=== PATIENT | male | born 2000 | race Caucasian/White ===

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

== ENCOUNTER 2019-01-21 10:09 | Emergency (ER) | payer OTHER ==
[2019-01-21 10:18] VITALS: BP 115/72; PULSE 96; RESP 18; TEMP 99.2
[2019-01-21] MEDS ORDERED: ACETAMINOPHEN TAB 325 MG TAB PO STA (10:19)
--- NOTE | 2019-01-21 10:47 | XR ---
EXAMINATION TYPE: XR chest 2V DATE OF EXAM: 01/21/2019 COMPARISON: Prior chest x-ray 06/15/2014 HISTORY: Pain, fever TECHNIQUE: Frontal and lateral views of the chest are obtained. FINDINGS: There is no focal air space opacity, pleural effusion, or pneumothorax seen. The cardiac silhouette size is within normal limits. The osseous structures are intact. IMPRESSION: No acute cardiopulmonary process.
--- NOTE | 2019-01-21 10:47 | ED ---
URI HPI - General Chief Complaint: Upper Respiratory Infection Stated Complaint: fever Time Seen by Provider: 01/21/19 10:12 Source: patient Mode of arrival: ambulatory Limitations: no limitations - History of Present Illness Initial Comments: 18yo male who denies past medical history presenting today for chief complaint of cough, congestion and sore throat. Patient states that yesterday 5 PM he began to develop congestion as well as cough. Patient states his throat is sore from coughing. Patient denies any vomiting, diarrhea, bowel pain, headache, nausea, vomiting or neck stiffness. Denies hemoptysis. She states that there has been other people in the home with similar symptoms. Remaining ROS (-), patient denies any recent shortness of breath, chest pain, back pain, numbness or tingling, dysuria or hematuria, constipation, or visual changes, or any other complaints. Upon arrival pt has low grade fever. Appears well VS within acceptable limits. Obvious upper respiratory symptoms. - Related Data Previous Rx's Medication Instructions Recorded Oseltamivir [Tamiflu] 75 mg PO Q12HR 5 Days #10 cap 01/21/19 Allergies Allergy/AdvReac Type Severity Reaction Status Date / Time cat dander Allergy Dyspnea Verified 01/21/19 10:18 Review of Systems ROS Statement: Those systems with pertinent positive or pertinent negative responses have been documented in the HPI. ROS Other: All systems not noted in ROS Statement are negative. Past Medical History Past Medical History: No Reported History History of Any Multi-Drug Resistant Organisms: None Reported Past Surgical History: No Surgical Hx Reported Past Psychological History: No Psychological Hx Reported Smoking Status: Never smoker Past Alcohol Use History: None Reported Past Drug Use History: None Reported General Exam - General Exam Comments Initial Comments: General: The patient is awake and alert, in no distress, and does not appear acutely ill. Eye: +3 mm pupils are equal, round and reactive to light, extra-ocular movements are intact. No nystagmus. There is normal conjunctiva bilaterally. No signs of icterus. Ears, nose, mouth and throat: There are moist mucous membranes and no oral lesions. Tympanic membranes mildly erythematous, no tonsillar enlargement exudates or lesions. Uvula midline. EAC WNL. Nasal rhinorrhea. Neck: The neck is supple, there is no tenderness or JVD. No anterior cervical lymphadenopathy Cardiovascular: There is a regular rate and rhythm. No murmur, rub or gallop is appreciated. Respiratory: Lungs are clear to auscultation, respirations are non-labored, breath sounds are equal. No wheezes, stridor, rales, or rhonchi. No areas concerning for consolidation. Gastrointestinal: Soft, non-distended, non-tender abdomen without masses or organomegaly noted. There is no rebound or guarding present. Musculoskeletal: Normal ROM, no tenderness. Strength 5/5. Sensation intact. Radial pulses equal bilaterally 2+. Neurological: A&O x 3. CN II-XII intact, There are no obvious motor or sensory deficits. Coordination appears grossly intact. Speech is normal. Skin: Skin is warm and dry and no rashes or lesions are noted. Psychiatric: Cooperative, appropriate mood & affect, normal judgment. Limitations: no limitations Course Vital Signs 01/21/19 10:14 Temperature 99.2 F Pulse Rate 96 Respiratory 18 Rate Blood Pressure 115/72 O2 Sat by Pulse 99 Oximetry Medical Decision Making - Medical Decision Making 18yo male presenting for upper respiratory symptoms. Influenza A positive. Chest x-ray negative. Physical examination revealed clear lung sounds. Patient appeared nontoxic. Oropharynx mildly erythematous. Otherwise normal exam. Patient had dry cough. At this time feel patient's symptoms correlate with laboratory study. Patient given tylenol, return parameters were discussed at length as well as symptomatically treatment. Patient discharged stable condition appearing well verbalized understanding of all return parameters. Case discussed with Dr. Powell prior to discharge. - Lab Data Lab Results 01/21/19 01/21/19 Range/Units 10:30 10:30 Influenza Type A RNA Detected H (Not Detectd) Influenza Type B (PCR) Not Detected (Not Detectd) Group A Strep Rapid Negative (Negative) Disposition Clinical Impression: Influenza A Disposition: HOME SELF-CARE Condition: Good Instructions (If sedation given, give patient instructions): Fever in Adults (ED), Influenza (ED) Additional Instructions: Please use medication as discussed. Please follow-up with family doctor in the next 2 days of symptoms have not improved. Please return to emergency room if the symptoms increase or worsen or for any other concerns. Prescriptions: Oseltamivir [Tamiflu] 75 mg PO Q12HR 5 Days #10 cap Is patient prescribed a controlled substance at d/c from ED?: No Referrals: None,Stated [Primary Care Provider] - 1-2 days [facility]2 days Time of Disposition: 11:01
== END 2019-01-21 11:19 | disposition home or self-care (01) ==
LOC: EC 10:09
DX: J10.1 Influenza due to other identified influenza virus with other respiratory manifestations (principal); Z91.09 Other allergy status, other than to drugs and biological substances
CPT/HCPCS: 71046; 87081; 87430; 87502; 99283

== ENCOUNTER 2019-01-23 18:09 | Emergency (ER) | payer OTHER ==
[2019-01-23 18:13] VITALS: BP 114/76
[2019-01-23] MEDS ORDERED: KETOROLAC 30 MG/ML 1 ML VIAL IM STA (18:28)
[2019-01-23] MEDS ORDERED: ACETAMINOPHEN TAB 325 MG TAB PO STA (18:29)
--- NOTE | 2019-01-23 18:31 | ED ---
Headache HPI - General Chief Complaint: Headache Stated Complaint: DX FLU, STILL HAS CARSON Time Seen by Provider: 01/23/19 18:16 Mode of arrival: ambulatory Limitations: no limitations - History of Present Illness Initial Comments: 18-year-old male with no past medical history diagnosed with influenza A on 01-21 presents today for chief complaint of headache. Patient states that he has had a headache on and off since diagnosed with flu. He states time all seems to help. Last dose this morning. Patient states the headache returned and he present to the emergency department for evaluation. Patient denies any neck stiffness or photophobia, muscle weakness, sensation deficits, speech changes, diplopia, visual loss. Patient states he took a dose of Tamiflu this morning which caused him to vomit. Denies any spontaneous emesis following that episode. Patient denies any diarrhea, abdominal pain, nausea. Review of systems negative, patient denies any recent shortness of breath, chest pain, back pain, abdominal pain, numbness or tingling, dysuria or hematuria, constipation or diarrhea, visual changes, or any other complaints. UPon arrival pt appears nontoxic. VS WNL. - Related Data Home Medications Medication Instructions Recorded Confirmed Acetaminophen Tab [Tylenol Tab] 500 mg PO Q6H PRN 01/23/19 01/23/19 Previous Rx's Medication Instructions Recorded Oseltamivir [Tamiflu] 75 mg PO Q12HR 5 Days #10 cap 01/21/19 Acetaminophen Tab [Tylenol Tab] 500 mg PO Q4H PRN 7 Days #28 tablet 01/23/19 Ibuprofen [Motrin] 600 mg PO Q6HR PRN 7 Days #28 tab 01/23/19 Allergies Allergy/AdvReac Type Severity Reaction Status Date / Time cat dander Allergy Dyspnea Verified 01/23/19 18:33 Review of Systems ROS Statement: Those systems with pertinent positive or pertinent negative responses have been documented in the HPI. ROS Other: All systems not noted in ROS Statement are negative. Past Medical History Past Medical History: No Reported History History of Any Multi-Drug Resistant Organisms: None Reported Past Surgical History: No Surgical Hx Reported Past Psychological History: No Psychological Hx Reported Smoking Status: Never smoker Past Alcohol Use History: None Reported Past Drug Use History: None Reported General Exam - General Exam Comments Initial Comments: General: The patient is awake and alert, in no distress, and does not appear acutely ill. Eye: +3 mm pupils are equal, round and reactive to light, extra-ocular movements are intact. No nystagmus. There is normal conjunctiva bilaterally. No signs of icterus. No photophobia Ears, nose, mouth and throat: There are moist mucous membranes and no oral lesions. Oropharynx mildly erythematous there is no tonsillar enlargement exudates or lesions. Uvula midline. Tympanic membranes are not erythematous or is no effusions bulging or retraction. No tenderness to palpation of the mastoid. No anterior cervical lymphadenopathy. Rhinorrhea, clear and bilateral nares. No tripoding, no drooling. Neck: The neck is supple, there is no tenderness or JVD. No nuchal rigidity ne gative Brudzinski and Kernig Cardiovascular: There is a regular rate and rhythm. No murmur, rub or gallop is appreciated. Respiratory: Lungs are clear to auscultation, respirations are non-labored, breath sounds are equal. No wheezes, stridor, rales, or rhonchi. No retractions or abdominal breathing. Gastrointestinal: Soft, non-distended, non-tender abdomen without masses or organomegaly noted. There is no rebound or guarding present. Bowel sounds are unremarkable. Musculoskeletal: Normal ROM, no tenderness. Strength 5/5. Sensation intact. Radial pulses equal bilaterally 2+. Neurological: A&O x 3. CN II-XII intact, There are no obvious motor or sensory deficits. Coordination appears grossly intact. Speech appears normal, no muffling. Skin: Skin is warm and dry and no rashes or lesions are noted. No extremity edema Psychiatric: Cooperative Limitations: no limitations Course Vital Signs 01/23/19 01/23/19 18:11 19:53 Temperature 98.3 F 99.9 F H Pulse Rate 80 90 Respiratory 18 14 Rate Blood Pressure 114/76 O2 Sat by Pulse 99 98 Oximetry - Reevaluation(s) Reevaluation #1: Patient reevaluated, patient states headache is subsiding almost completely. Patient appears well. Patient afebrile. 01/23/19 19:32 Medical Decision Making - Medical Decision Making Well-appearing 18-year-old male presenting for headache. Patient states he was diagnosed with blunt a 2 days prior. Patient states how to headache earlier this morning, patient states she has not taken Tylenol since that dose. Patient states headache return. Patient has no findings on physical examination concerning for meningismus. Appearing well nontoxic. With headache relief with tylenol. Pt discharged and the importance of nsaids/Tylenol were discussed in detail with the patient for symptomatic treatment. Pt discharged after discussing the case with attending Dr. Romero agreeable with discharge/plan of care. Disposition Clinical Impression: Influenza A, Headache Disposition: HOME SELF-CARE Condition: Good Instructions (If sedation given, give patient instructions): Influenza (ED) Additional Instructions: Please use medication as discussed. Please follow-up with family doctor in the next 2 days of symptoms have not improved. Please return to emergency room if the symptoms increase or worsen or for any other concerns. Prescriptions: Ibuprofen [Motrin] 600 mg PO Q6HR PRN 7 Days #28 tab PRN Reason: Fever Acetaminophen Tab [Tylenol Tab] 500 mg PO Q4H PRN 7 Days #28 tablet PRN Reason: Headache Is patient prescribed a controlled substance at d/c from ED?: No Referrals: Karlee Daley MD [Primary Care Provider] - 1-2 days Time of Disposition: 19:33
[2019-01-23 19:54] VITALS: PULSE 90; RESP 14; TEMP 99.9
== END 2019-01-23 19:54 | disposition home or self-care (01) ==
LOC: EC 18:09
DX: J10.1 Influenza due to other identified influenza virus with other respiratory manifestations (principal); Z91.09 Other allergy status, other than to drugs and biological substances; Z91.19 Patient's noncompliance with other medical treatment and regimen
CPT/HCPCS: 99283

== ENCOUNTER 2020-11-10 16:33 | Emergency (ER) | payer OTHER ==
[2020-11-10 16:37] VITALS: BP 132/75; PULSE 60; RESP 18; TEMP 98.1
--- NOTE | 2020-11-10 17:02 | ED ---
URI HPI - General Chief Complaint: Upper Respiratory Infection Stated Complaint: lung pain Time Seen by Provider: 11/10/20 16:44 Source: patient, RN notes reviewed Mode of arrival: ambulatory Limitations: no limitations - History of Present Illness Initial Comments: This a 20-year-old male presents emergency Department chief complaint of left- sided long, rib pain. Patient states started this morning around 9 AM when he was working. He denies any trauma. Patient states that he feels that he is sick with a slight cough. Does not have any shortness breath at rest. No GI symptoms no abdominal pain. Patient has no prior cardiac disease. Patient states that his and chemo over [place] was not feeling well and now his been sick. - Related Data Home Medications Medication Instructions Recorded Confirmed Acetaminophen Tab [Tylenol Tab] 500 mg PO Q6H PRN 01/23/19 01/23/19 Previous Rx's Medication Instructions Recorded Oseltamivir [Tamiflu] 75 mg PO Q12HR 5 Days #10 cap 01/21/19 Acetaminophen Tab [Tylenol Tab] 500 mg PO Q4H PRN 7 Days #28 tablet 01/23/19 Ibuprofen [Motrin] 600 mg PO Q6HR PRN 7 Days #28 tab 01/23/19 Allergies Allergy/AdvReac Type Severity Reaction Status Date / Time cat dander Allergy Dyspnea Verified 11/10/20 16:37 Review of Systems ROS Statement: Those systems with pertinent positive or pertinent negative responses have been documented in the HPI. ROS Other: All systems not noted in ROS Statement are negative. Past Medical History Past Medical History: No Reported History History of Any Multi-Drug Resistant Organisms: None Reported Past Surgical History: No Surgical Hx Reported Past Psychological History: No Psychological Hx Reported Smoking Status: Never smoker Past Alcohol Use History: None Reported Past Drug Use History: None Reported General Exam Limitations: no limitations General appearance: alert, in no apparent distress Head exam: Present: atraumatic, normocephalic, normal inspection Eye exam: Present: normal appearance, PERRL, EOMI. Absent: scleral icterus, conjunctival injection, periorbital swelling ENT exam: Present: normal exam, normal oropharynx, mucous membranes moist Neck exam: Present: normal inspection, full ROM. Absent: tenderness, meningismus, lymphadenopathy Respiratory exam: Present: normal lung sounds bilaterally, chest wall tenderness. Absent: respiratory distress, wheezes, rales, rhonchi, stridor Cardiovascular Exam: Present: regular rate, normal rhythm, normal heart sounds. Absent: systolic murmur, diastolic murmur, rubs, gallop, clicks GI/Abdominal exam: Present: soft, normal bowel sounds. Absent: distended, tenderness, guarding, rebound, rigid Course Vital Signs 11/10/20 16:34 Temperature 98.1 F Pulse Rate 60 Respiratory 18 Rate Blood Pressure 132/75 O2 Sat by Pulse 99 Oximetry Medical Decision Making - Medical Decision Making Chest x-rays unremarkable. Patient has reproducible pain, rib discomfort which is consistent with costochondritis. Patient vitals are stable patient discharged in stable condition return parameters were discussed. Disposition Clinical Impression: Chest wall pain, Costochondritis, acute Disposition: HOME SELF-CARE Condition: Stable Instructions (If sedation given, give patient instructions): Costochondritis (ED) Additional Instructions: Please return to the Emergency Department if symptoms worsen or any other concerns. Is patient prescribed a controlled substance at d/c from ED?: No Referrals: None,Stated [Primary Care Provider] - 1-2 days Time of Disposition: 17:32
--- NOTE | 2020-11-10 17:27 | XR ---
EXAMINATION TYPE: XR chest 2V DATE OF EXAM: 11/10/2020 COMPARISON: 01/21/2019 HISTORY: Cough TECHNIQUE: FINDINGS: Heart and mediastinum are normal. Lungs are clear. Diaphragm is normal. Bony thorax is inta ct. IMPRESSION: Normal chest. No change.
== END 2020-11-10 17:42 | disposition home or self-care (01) ==
LOC: EC 16:33
DX: M94.0 Chondrocostal junction syndrome [Tietze] (principal); R05 Cough; Z91.048 Other nonmedicinal substance allergy status
CPT/HCPCS: 71046; 99283

== ENCOUNTER 2020-11-12 17:52 | Emergency (ER) | payer OTHER ==
[2020-11-12 17:58] VITALS: RESP 18; TEMP 98.3
--- NOTE | 2020-11-12 19:18 | ED ---
Recheck HPI - General Chief Complaint: Chest Pain Stated Complaint: Revisit - Chest Pain Time Seen by Provider: 11/12/20 18:33 Source: patient Mode of arrival: ambulatory Limitations: no limitations - History of Present Illness Initial Comments: Patient is a 20-year-old male presenting to the emergency Department with complaints of left-sided rib pain 2 days. Patient was seen in the ER 2 days ago and evaluated for the exact same thing. Patient states the symptoms have been intermittent. Patient states he was stressed out today by a coworker and states the pain increased. Patient states it still hurts to touch the area and it hurts worse when he is lifting things. Patient was told to start Motrin however he did not go to any yet. He denies any fever, chills, no shortness of breath, denies history of heart disease. He states his symptoms feel the same as they were 2 days ago. He has no further complaints. - Related Data Previous Rx's Medication Instructions Recorded Oseltamivir [Tamiflu] 75 mg PO Q12HR 5 Days #10 cap 01/21/19 Acetaminophen Tab [Tylenol Tab] 500 mg PO Q4H PRN 7 Days #28 tablet 01/23/19 Acetaminophen Tab [Tylenol Tab] 500 mg PO Q6H PRN #30 tab 11/12/20 Ibuprofen [Motrin] 600 mg PO Q6HR PRN 7 Days #28 tab 11/12/20 Allergies Allergy/AdvReac Type Severity Reaction Status Date / Time cat dander Allergy Dyspnea Verified 11/10/20 16:37 Review of Systems ROS Statement: Those systems with pertinent positive or pertinent negative responses have been documented in the HPI. ROS Other: All systems not noted in ROS Statement are negative. Past Medical History Past Medical History: No Reported History History of Any Multi-Drug Resistant Organisms: None Reported Past Surgical History: No Surgical Hx Reported Past Psychological History: No Psychological Hx Reported Smoking Status: Never smoker Past Alcohol Use History: None Reported Past Drug Use History: None Reported General Exam - General Exam Comments Initial Comments: GENERAL: Patient is well-developed and well-nourished. Patient is nontoxic and in no acute distress. HEAD: Atraumatic, normocephalic. EYES: Pupils equal round and reactive to light, extraocular movements intact, sclera anicteric, conjunctiva are normal. Eyelids were unremarkable. ENT: TMs normal, nares patent, oropharynx clear without exudates. Moist mucous membranes. NECK: Normal range of motion, supple without lymphadenopathy or JVD. LUNGS: Unlabored respirations. Breath sounds clear to auscultation bilaterally and equal. No wheezes rales or rhonchi. HEART: Regular rate and rhythm without murmurs, rubs or gallops. ABDOMEN: Soft, nontender, normoactive bowel sounds. No guarding, no rebound. No masses appreciated. : Deferred MUSCULOSKELETAL: Normal extremities with adequate strength and normal range of motion, no pitting or edema. No clubbing or cyanosis. Patient does have pain with palpation on left side of the anterior and lateral ribs. Increases with deep inhalation. NEUROLOGICAL: Patient is alert and oriented x 3. Motor and sensory are also intact. Cranial nerves II through XII grossly intact. Symmetrical smile. Normal speech, normal gait. PSYCH: Normal mood, normal affect. SKIN: Warm, Dry, normal turgor, no rashes or lesions noted. Limitations: no limitations Course Vital Signs 11/12/20 11/12/20 17:53 19:36 Temperature 98.3 F Pulse Rate 68 62 Respiratory 18 18 Rate Blood Pressure 129/83 120/72 O2 Sat by Pulse 98 98 Oximetry Medical Decision Making - Medical Decision Making Patient is a 20-year-old male here for left-sided rib pain 2 days. Patient was evaluated in the ER 2 days ago for same thing, diagnosed with costochondritis. He states he was not able to go pick remover the Motrin yet. He states he gets stressed out today and it increased his pain. EKG shows no acute process. Patient had normal chest x-ray yesterday. Patient states his pain feels similar . He denies history of heart disease. I discussed with patient that he needs to continue with Motrin as discussed previously. He needs to continue to limit his heavy lifting. He is stable for discharge. Case discussed with Dr. Kent. - EKG Data EKG Comments: Normal sinus rhythm, normal ECG, no signs of acute ischemia. Ventricular rate 64, MN 150, QT 386. Disposition Clinical Impression: Costochondritis, acute Disposition: HOME SELF-CARE Condition: Stable Instructions (If sedation given, give patient instructions): Costochondritis (ED) Additional Instructions: Please return to the Emergency Department if symptoms worsen or any other concerns. Limit heavy lifting, recommend taking Motrin for discomfort. May also apply heat and/or ice to the area. Please follow-up with your regular physician if symptoms persist. Prescriptions: Ibuprofen [Motrin] 600 mg PO Q6HR PRN 7 Days #28 tab PRN Reason: Fever Acetaminophen Tab [Tylenol Tab] 500 mg PO Q6H PRN #30 tab PRN Reason: Pain Is patient prescribed a controlled substance at d/c from ED?: No Referrals: None,Stated [Primary Care Provider] - 1-2 days
[2020-11-12 19:40] VITALS: BP 120/72; PULSE 62
== END 2020-11-12 19:40 | disposition home or self-care (01) ==
LOC: EC 17:52
DX: M94.0 Chondrocostal junction syndrome [Tietze] (principal); Z91.048 Other nonmedicinal substance allergy status
CPT/HCPCS: 93005; 99284

== ENCOUNTER 2021-01-05 10:16 | Emergency (ER) | payer OTHER ==
[2021-01-05 10:32] VITALS: TEMP 98.2
[2021-01-05] MEDS ORDERED: IBUPROFEN 600 MG TAB PO STA (10:47)
--- NOTE | 2021-01-05 10:52 | ED ---
Chest Pain HPI - General Chief Complaint: Chest Pain Stated Complaint: Chest pain Time Seen by Provider: 01/05/21 10:35 Source: patient, RN notes reviewed Mode of arrival: wheelchair Limitations: no limitations - History of Present Illness Initial Comments: This is a 20-year-old male presents emergency Department chief complaint of left-sided rib pain. 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 He states he notices started a few spray in the face and he states he moved quickly. Patient has pain with movement he does not have any resting shortness of breath no prior cardiac or lung disease other than mild asthma. Denies being a smoker. He states that he got away from the exposure, sat down and the pain did improve. Patient states he had an episode of this back in October for similar situation. - Related Data Previous Rx's Medication Instructions Recorded Acetaminophen Tab [Tylenol Tab] 500 mg PO Q6H #30 tablet 01/05/21 Ibuprofen [Motrin] 600 mg PO Q8HR PRN #20 tab 01/05/21 Allergies Allergy/AdvReac Type Severity Reaction Status Date / Time cat dander Allergy Dyspnea Verified 01/05/21 10:53 Review of Systems ROS Statement: Those systems with pertinent positive or pertinent negative responses have been documented in the HPI. ROS Other: All systems not noted in ROS Statement are negative. EKG Findings - EKG Comments: EKG Findings:: EKG for at 10:36 normal sinus rhythm rate of 63 MA 180 QRS 94 QT/QTC 358/366 Past Medical History Past Medical History: No Reported History History of Any Multi-Drug Resistant Organisms: None Reported Past Surgical History: No Surgical Hx Reported Past Psychological History: Anxiety Smoking Status: Never smoker Past Alcohol Use History: None Reported Past Drug Use History: None Reported General Exam Limitations: no limitations General appearance: alert, in no apparent distress Head exam: Present: atraumatic, normocephalic, normal inspection Eye exam: Present: normal appearance, PERRL, EOMI. Absent: scleral icterus, conjunctival injection, periorbital swelling ENT exam: Present: normal exam, mucous membranes moist Neck exam: Present: normal inspection, full ROM. Absent: tenderness, meningismus, lymphadenopathy Respiratory exam: Present: normal lung sounds bilaterally, chest wall tenderness (Moderate tenderness with palpation to the anterior lateral ribs on the left, pain with range of motion of left arm and pain with deep inspiration to the ribs.). Absent: respiratory distress, wheezes, rales, rhonchi, stridor Cardiovascular Exam: Present: regular rate, normal rhythm, normal heart sounds. Absent: systolic murmur, diastolic murmur, rubs, gallop, clicks GI/Abdominal exam: Present: soft, normal bowel sounds. Absent: distended, tenderness, guarding, rebound, rigid Back exam: Absent: CVA tenderness (R), CVA tenderness (L) Neurological exam: Present: alert, oriented X3, CN II-XII intact, reflexes normal. Absent: motor sensory deficit Course Vital Signs 01/05/21 10:28 Temperature 98.2 F Pulse Rate 67 Respiratory 16 Rate Blood Pressure 103/70 O2 Sat by Pulse 98 Oximetry Chest Pain MDM - MDM X-rays reviewed no acute mL any no pneumothorax or fracture. Patient has very reproducible pain on the chest wall. Patient no prior cardiac risk factors EKG is unremarkable. Patient has no symptoms at rest. Patient be discharged in stable condition with a chest wall pain muscular strain. Disposition Clinical Impression: Chest wall injury, Chest wall muscle strain Disposition: HOME SELF-CARE Condition: Stable Instructions (If sedation given, give patient instructions): Chest Wall Pain (ED) Additional Instructions: Please return to the Emergency Department if symptoms worsen or any other concerns. Prescriptions: Ibuprofen [Motrin] 600 mg PO Q8HR PRN #20 tab PRN Reason: Pain Acetaminophen Tab [Tylenol Tab] 500 mg PO Q6H #30 tablet Is patient prescribed a controlled substance at d/c from ED?: No Referrals: None,Stated [Primary Care Provider] - 1-2 days Time of Disposition: 11:58
--- NOTE | 2021-01-05 11:11 | XR ---
EXAMINATION TYPE: PA chest with left rib series, 5 views DATE OF EXAM: 01/05/2021 Comparison: 11/10/2020 Clinical History: 20-year-old male left-sided rib pain Findings: The cardiomediastinal silhouette, aorta, and pulmonary vasculature are within normal limits. Lungs and pleural spaces are clear. No displaced left rib fracture seen. Impression: No acute cardiopulmonary process. No displaced left rib fracture seen.
[2021-01-05 13:00] VITALS: BP 123/74; PULSE 78; RESP 18
== END 2021-01-05 12:15 | disposition home or self-care (01) ==
LOC: EC 10:16
DX: S29.011A Strain of muscle and tendon of front wall of thorax, initial encounter (principal); Z91.048 Other nonmedicinal substance allergy status; X50.3XXA Overexertion from repetitive movements, initial encounter; Y93.89 Activity, other specified; Y92.69 Other specified industrial and construction area as the place of occurrence of the external cause
CPT/HCPCS: 93005; 99283

== ENCOUNTER 2021-01-07 09:44 | Emergency (ER) | payer OTHER ==
[2021-01-07 09:53] VITALS: BP 107/72; PULSE 71; RESP 18; TEMP 98.2
[2021-01-07] MEDS ORDERED: LIDOCAINE 5% PATCH TOPICAL STA (10:09)
[2021-01-07] MEDS ORDERED: IBUPROFEN 800 MG TAB PO STA (10:09)
--- NOTE | 2021-01-07 10:12 | ED ---
General Adult HPI - General Chief complaint: Shortness of Breath Stated complaint: TIARRA Time Seen by Provider: 01/07/21 09:59 Source: patient Mode of arrival: ambulatory - History of Present Illness Initial comments: Dictation was produced using [employer] dictation software. please excuse any grammatical, word or spelling errors. This patient was cared for during a federal and state declared state of emergency secondary to Covid 19 Chief Complaint: 20-year-old male presents with chest pain History of Present Illness: 20-year-old male presents with chest pain. Patient was seen here 2 days ago for the same complaint. 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 Patient states he was seen here 2 days ago for chest pain. He is here today for chest pain. Patient denies any shortness of breath. He has no medical problems. Patient states he began experiencing pain at work while using the sprayer. Patient states he has pain over his left chest. It is not exacerbated with movement. It's tender when he pressed the left anterior chest. Denies any trauma to the chest. He was prescribed medications on his last visit however has not picked them up due to transportation issues. The ROS documented in this emergency department record has been reviewed and confirmed by me. Those systems with pertinent positive or negative responses have been documented in the HPI. All other systems are other negative and/or noncontributory. PHYSICAL EXAM: General Impression: Alert and oriented x3, not in acute distress HEENT: Normocephalic atraumatic, extra-ocular movements intact, pupils equal and reactive to light bilaterally, mucous membranes moist. Cardiovascular: Heart regular rate and rhythm Chest: Able to complete full sentences, no retractions, no tachypnea, lungs clear to auscultation bilaterally, point tenderness over the left ribs at approximately the anterior anterior axillary line of ribs #6 Abdomen: abdomen soft, non-tender, non-distended, no organomegaly Musculoskeletal: Pulses present and equal in all extremities, no peripheral edema Motor: no focal deficits noted Neurological: CN II-XII grossly intact, no focal motor or sensory deficits noted Skin: Intact with no visualized rashes Psych: Normal affect and mood ED course: 20-year-old male presents with chief complaint of chest pain. Clinical presentation consistent with rib pain vital signs upon arrival are within acceptable limits. Patient's well-appearing at bedside. Chest x-ray is nonacute. EKG is normal. Patient given Lidoderm patch and one dose of Motrin. Patient be discharged. 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 - Related Data Previous Rx's Medication Instructions Recorded Acetaminophen Tab [Tylenol Tab] 500 mg PO Q6H #30 tablet 01/05/21 Ibuprofen [Motrin] 600 mg PO Q8HR PRN #20 tab 01/05/21 Allergies Allergy/AdvReac Type Severity Reaction Status Date / Time cat dander Allergy Dyspnea Verified 01/07/21 09:53 Review of Systems ROS Statement: Those systems with pertinent positive or pertinent negative responses have been documented in the HPI. ROS Other: All systems not noted in ROS Statement are negative. Past Medical History Past Medical History: No Reported History History of Any Multi-Drug Resistant Organisms: None Reported Past Surgical History: No Surgical Hx Reported Past Psychological History: Anxiety Smoking Status: Never smoker Past Alcohol Use History: None Reported Past Drug Use History: None Reported Course Vital Signs 01/07/21 09:50 Temperature 98.2 F Pulse Rate 71 Respiratory 18 Rate Blood Pressure 107/72 O2 Sat by Pulse 96 Oximetry Disposition Clinical Impression: Rib pain Disposition: HOME SELF-CARE Condition: Good Instructions (If sedation given, give patient instructions): Chest Pain (ED) Is patient prescribed a controlled substance at d/c from ED?: No Referrals: Maria Fernanda Cyr MD [REFERRING] - 1-2 days Time of Disposition: 10:50
--- NOTE | 2021-01-07 10:39 | XR ---
EXAMINATION TYPE: XR chest 2V DATE OF EXAM: 01/07/2021 COMPARISON: 01/05/2021 TECHNIQUE: PA and lateral views submitted. HISTORY: Chest pain FINDINGS: The lungs are clear and there is no pneumothorax, pleural effusion, or focal pneumonia. IMPRESSION: 1. No acute process.
== END 2021-01-07 11:00 | disposition home or self-care (01) ==
LOC: EC 09:44
DX: R07.81 Pleurodynia (principal); Z91.048 Other nonmedicinal substance allergy status
CPT/HCPCS: 71046; 93005; 99285

== ENCOUNTER 2021-01-30 16:56 | Emergency (ER) | payer OTHER ==
[2021-01-30 17:10] VITALS: BP 109/64; PULSE 82; RESP 18; TEMP 98.1
--- NOTE | 2021-01-30 17:45 | ED ---
General Adult HPI - General Chief complaint: Recheck/Abnormal Lab/Rx Stated complaint: Covid test Time Seen by Provider: 01/30/21 17:13 Source: patient, RN notes reviewed Mode of arrival: ambulatory Limitations: no limitations - History of Present Illness Initial comments: 20-year-old male presents to the emergency room for a chief complaint of covid test. States that a friend came over to the house who was exposed yesterday. Friend is currently asymptomatic and has not had any testing. Patient was just exposed today with family members. Patient has not developed any symptoms at all. They called their PCP who recommended they get tested. Patient has no other complaints at this time including shortness of breath, chest pain, abdominal pain, nausea or vomiting, headache, or visual changes. - Related Data Previous Rx's Medication Instructions Recorded Acetaminophen Tab [Tylenol Tab] 500 mg PO Q6H #30 tablet 01/05/21 Ibuprofen [Motrin] 600 mg PO Q8HR PRN #20 tab 01/05/21 Allergies Allergy/AdvReac Type Severity Reaction Status Date / Time cat dander Allergy Dyspnea Verified 01/30/21 17:08 Review of Systems ROS Statement: Those systems with pertinent positive or pertinent negative responses have been documented in the HPI. ROS Other: All systems not noted in ROS Statement are negative. Past Medical History Past Medical History: No Reported History History of Any Multi-Drug Resistant Organisms: None Reported Past Surgical History: No Surgical Hx Reported Past Psychological History: Anxiety Smoking Status: Never smoker Past Alcohol Use History: None Reported Past Drug Use History: None Reported General Exam Limitations: no limitations General appearance: alert, in no apparent distress Head exam: Present: atraumatic, normocephalic, normal inspection Eye exam: Present: normal appearance, PERRL, EOMI. Absent: scleral icterus, conjunctival injection, periorbital swelling ENT exam: Present: normal exam, mucous membranes moist Neck exam: Present: normal inspection. Absent: tenderness, meningismus, lymphadenopathy Respiratory exam: Present: normal lung sounds bilaterally. Absent: respiratory distress, wheezes, rales, rhonchi, stridor Cardiovascular Exam: Present: regular rate, normal rhythm, normal heart sounds. Absent: systolic murmur, diastolic murmur, rubs, gallop, clicks Course Vital Signs 01/30/21 17:06 Temperature 98.1 F Pulse Rate 82 Respiratory 18 Rate Blood Pressure 109/64 O2 Sat by Pulse 97 Oximetry Medical Decision Making - Medical Decision Making Vitals are stable. Patient is well-appearing. Patient is asymptomatic. PCR was ordered. Patient will follow up with his doctor. He will return here for any worsening symptoms. Disposition Clinical Impression: COVID-19 virus test result unknown Disposition: HOME SELF-CARE Condition: Good Instructions (If sedation given, give patient instructions): Coronavirus Disease 2019 (COVID-19) Additional Instructions: Please quarantine until you get your results. At that point talk to your doctor about whether you need to do the full 10 day quarantine as you're not directly exposed. Return to the emergency room for any worsening symptoms. Is patient prescribed a controlled substance at d/c from ED?: No Referrals: Maria Fernanda Cyr MD [REFERRING] - 1-2 days Time of Disposition: 17:44
== END 2021-01-30 17:45 | disposition home or self-care (01) ==
LOC: EC 16:56
DX: Z20.822 Contact with and (suspected) exposure to COVID-19 (principal)
CPT/HCPCS: 99283; U0003; U0005

== ENCOUNTER 2021-02-12 09:17 | Emergency (ER) | payer OTHER ==
[2021-02-12 09:25] VITALS: BP 122/76; PULSE 68; RESP 18; TEMP 98
--- NOTE | 2021-02-12 10:02 | XR ---
EXAMINATION TYPE: XR lumbosacral spine min 4V DATE OF EXAM: 02/12/2021 CLINICAL HISTORY: pain COMPARISON: NONE TECHNIQUE: Frontal, lateral, and oblique images of the lumbar spine are obtained. FINDINGS: Curvature noted convex to the left. There are 5 lumbar type vertebral bodies identified. The lumbar spine shows satisfactory alignment without evidence of acute fracture or dislocation. Vert ebral body heights are within normal limits. Disc spaces are well preserved. The overlying soft tis richard appears unremarkable. IMPRESSION: No acute fracture or dislocation is seen in the lumbar spine.ICD 10 NO FRACTURE, INITIAL EVALUATION
--- NOTE | 2021-02-12 10:33 | ED ---
Back Pain HPI - General Chief Complaint: Back Pain/Injury Stated Complaint: Fall, Back Injury Time Seen by Provider: 02/12/21 10:15 Source: patient, RN notes reviewed Limitations: no limitations - History of Present Illness Initial Comments: 20-year-old male presents emergency Department chief complaint of back pain. Patient states that he tripped over a part states that he twisted his back. Patient complains of mid to low back pain. Patient denies any bowel bladder incontinence or retention or saddle anesthesias. No abdominal complaints. Patient states there is a burning sensation in his muscles. - Related Data Previous Rx's Medication Instructions Recorded Acetaminophen Tab [Tylenol Tab] 500 mg PO Q6H #30 tablet 01/05/21 Ibuprofen [Motrin] 600 mg PO Q8HR PRN #20 tab 01/05/21 Cyclobenzaprine [Flexeril] 10 mg PO TID PRN #15 tab 02/12/21 Ibuprofen [Motrin] 600 mg PO Q8HR PRN #20 tab 02/12/21 Allergies Allergy/AdvReac Type Severity Reaction Status Date / Time cat dander Allergy Dyspnea Verified 02/12/21 09:23 Review of Systems ROS Statement: Those systems with pertinent positive or pertinent negative responses have been documented in the HPI. ROS Other: All systems not noted in ROS Statement are negative. Past Medical History Past Medical History: No Reported History History of Any Multi-Drug Resistant Organisms: None Reported Past Surgical History: No Surgical Hx Reported Past Psychological History: Anxiety Smoking Status: Never smoker Past Alcohol Use History: None Reported Past Drug Use History: None Reported General Exam Limitations: no limitations General appearance: alert, in no apparent distress Head exam: Present: atraumatic, normocephalic, normal inspection ENT exam: Present: normal exam, normal oropharynx, mucous membranes moist Neck exam: Present: normal inspection. Absent: tenderness, meningismus, lymphadenopathy Respiratory exam: Present: normal lung sounds bilaterally. Absent: respiratory distress, wheezes, rales, rhonchi, stridor Cardiovascular Exam: Present: regular rate, normal rhythm, normal heart sounds. Absent: systolic murmur, diastolic murmur, rubs, gallop, clicks GI/Abdominal exam: Present: soft, normal bowel sounds. Absent: distended, tenderness, guarding, rebound, rigid Extremities exam: Present: other (Or extremity strength equal bilaterally neurovascular intact) Back exam: Present: full ROM, tenderness (Paraspinal), muscle spasm, paraspinal tenderness. Absent: vertebral tenderness Neurological exam: Present: reflexes normal. Absent: motor sensory deficit Course Vital Signs 02/12/21 09:23 Temperature 98 F Pulse Rate 68 Respiratory 18 Rate Blood Pressure 122/76 O2 Sat by Pulse 99 Oximetry Medical Decision Making - Medical Decision Making X-rays unremarkable. Patient has a back strain. Patient discharged on ibuprofen and Flexeril. Disposition Clinical Impression: Back strain Disposition: HOME SELF-CARE Condition: Stable Instructions (If sedation given, give patient instructions): Acute Low Back Pain (ED) Additional Instructions: Please return to the Emergency Department if symptoms worsen or any other concerns. Prescriptions: Cyclobenzaprine [Flexeril] 10 mg PO TID PRN #15 tab PRN Reason: Muscle Spasm Ibuprofen [Motrin] 600 mg PO Q8HR PRN #20 tab PRN Reason: Pain Is patient prescribed a controlled substance at d/c from ED?: No Referrals: None,Stated [Primary Care Provider] - 1-2 days Time of Disposition: 10:33
== END 2021-02-12 10:36 | disposition home or self-care (01) ==
LOC: EC 09:17
DX: S39.012A Strain of muscle, fascia and tendon of lower back, initial encounter (principal); F41.9 Anxiety disorder, unspecified; W18.09XA Striking against other object with subsequent fall, initial encounter
CPT/HCPCS: 72110; 99284

== ENCOUNTER 2021-03-25 15:42 | Emergency (ER) | payer OTHER ==
[2021-03-25 15:46] VITALS: BP 108/71; PULSE 61; RESP 20; TEMP 98
[2021-03-25] MEDS ORDERED: SODIUM CHLORIDE 0.9% 1,000 ML IV STA (15:56)
--- NOTE | 2021-03-25 16:01 | ED ---
Nausea/Vomiting/Diarrhea HPI - General Chief complaint: Nausea/Vomiting/Diarrhea Stated complaint: vomiting Time Seen by Provider: 03/25/21 15:48 Source: patient, RN notes reviewed Mode of arrival: ambulatory Limitations: no limitations - History of Present Illness Initial comments: Patient is a 20-year-old male that presents emergency department with a two-day history of nausea and vomiting. He notes that he can emergency room to get tested for flu. He denied any other symptoms such as fever fatigue chills. He notes that he has vomited small amounts several times over the last 2 days. He noted that he called his work and at home that he needs a work note to come back. He did note that he does not want any blood tests as he is afraid of nee dles. He was well-appearing, well-hydrated while sitting up in bed during exam and interview. She denied any chest pain shortness of breath headache diarrhea constipation fever fatigue chills lightheadedness dizziness. - Related Data Home Medications Medication Instructions Recorded Confirmed No Known Home Medications 03/25/21 03/25/21 Allergies Allergy/AdvReac Type Severity Reaction Status Date / Time cat dander Allergy Dyspnea Verified 03/25/21 16:35 Review of Systems ROS Statement: Those systems with pertinent positive or pertinent negative responses have been documented in the HPI. ROS Other: All systems not noted in ROS Statement are negative. Past Medical History Past Medical History: No Reported History History of Any Multi-Drug Resistant Organisms: None Reported Past Surgical History: No Surgical Hx Reported Past Psychological History: Anxiety Smoking Status: Never smoker Past Alcohol Use History: None Reported Past Drug Use History: None Reported General Exam Limitations: no limitations General appearance: alert, in no apparent distress Head exam: Present: atraumatic, normocephalic, normal inspection Eye exam: Present: normal appearance, PERRL, EOMI. Absent: scleral icterus, conjunctival injection, periorbital swelling Neck exam: Present: normal inspection Respiratory exam: Present: normal lung sounds bilaterally. Absent: respiratory distress, wheezes, rales, rhonchi, stridor Cardiovascular Exam: Present: regular rate, normal rhythm, normal heart sounds. Absent: systolic murmur, diastolic murmur, rubs, gallop, clicks GI/Abdominal exam: Present: soft, normal bowel sounds, other (Generalized discomfort, patient was flexing his absence making exam hard.). Absent: distended, tenderness, guarding, rebound, rigid Extremities exam: Present: normal inspection, full ROM, normal capillary refill. Absent: tenderness, pedal edema, joint swelling, calf tenderness Neurological exam: Present: alert, oriented X3, CN II-XII intact Psychiatric exam: Present: normal affect, normal mood Skin exam: Present: warm, dry, intact, normal color. Absent: rash Course Vital Signs 03/25/21 15:43 Temperature 98.0 F Pulse Rate 61 Respiratory 20 Rate Blood Pressure 108/71 O2 Sat by Pulse 96 Oximetry Medical Decision Making - Medical Decision Making 20-year-old male with a 2 day history of nausea vomiting. Labs, 1 L normal saline, influenza and Covid test ordered Patient refuses all blood testing and saline only wanted influenza test. Case discussed with Dr. Bennett, patient can discharge home. Influenza test negative - Lab Data Lab Results 03/25/21 Range/Units 15:57 Influenza Type A RNA Not Detected (Not Detectd) Influenza Type B (PCR) Not Detected (Not Detectd) Disposition Clinical Impression: Nausea & vomiting Disposition: HOME SELF-CARE Condition: Stable Additional Instructions: Please return to the Emergency Department if symptoms worsen or any other concerns. Follow-up with primary care Work note given. Is patient prescribed a controlled substance at d/c from ED?: No Referrals: None,Stated [Primary Care Provider] - 1-2 days Time of Disposition: 18:09
== END 2021-03-25 18:16 | disposition home or self-care (01) ==
LOC: EC 15:42
DX: R11.2 Nausea with vomiting, unspecified (principal); F41.9 Anxiety disorder, unspecified
CPT/HCPCS: 87502; 99284

== ENCOUNTER 2021-04-07 04:31 | Emergency (ER) | payer OTHER ==
[2021-04-07 04:38] VITALS: TEMP 97.7
[2021-04-07 04:59] VITALS: RESP 18
--- NOTE | 2021-04-07 05:37 | XR ---
EXAM: XR Chest, 2 Views CLINICAL HISTORY: ITS.REASON XR Reason: L chest pain TECHNIQUE: Frontal and lateral views of the chest. COMPARISON: No relevant prior studies available. FINDINGS: Lungs: Unremarkable. No consolidation. Pleural space: Unremarkable. No pneumothorax. Heart: Unremarkable. No cardiomegaly. Mediastinum: Unremarkable. Bones/joints: Unremarkable. IMPRESSION: No evidence of acute cardiopulmonary disease.
--- NOTE | 2021-04-07 06:14 | ED ---
General Adult HPI - General Chief complaint: Shortness of Breath Stated complaint: Pain in Lungs Time Seen by Provider: 04/07/21 04:41 Source: patient Mode of arrival: ambulatory Limitations: no limitations - Related Data Previous Rx's Medication Instructions Recorded Ibuprofen [Motrin] 600 mg PO Q8HR PRN #20 tab 04/07/21 Allergies Allergy/AdvReac Type Severity Reaction Status Date / Time cat dander Allergy Dyspnea Verified 04/07/21 04:37 Review of Systems ROS Statement: Those systems with pertinent positive or pertinent negative responses have been documented in the HPI. ROS Other: All systems not noted in ROS Statement are negative. Past Medical History Past Medical History: No Reported History History of Any Multi-Drug Resistant Organisms: None Reported Past Surgical History: No Surgical Hx Reported Past Psychological History: Anxiety Smoking Status: Never smoker Past Alcohol Use History: None Reported Past Drug Use History: None Reported General Exam Limitations: no limitations Course Vital Signs 04/07/21 04/07/21 04:32 04:58 Temperature 97.7 F Pulse Rate 60 Respiratory 20 18 Rate Blood Pressure 117/74 O2 Sat by Pulse 96 Oximetry Disposition Clinical Impression: Pleuritis Disposition: HOME SELF-CARE Condition: Good Instructions (If sedation given, give patient instructions): Pleurisy (ED) Prescriptions: Ibuprofen [Motrin] 600 mg PO Q8HR PRN #20 tab PRN Reason: Pain Is patient prescribed a controlled substance at d/c from ED?: No Referrals: None,Stated [Primary Care Provider] - 1-2 days
[2021-04-07 06:24] VITALS: BP 107/79; PULSE 59
== END 2021-04-07 06:23 | disposition home or self-care (01) ==
LOC: EC 04:31
DX: R09.1 Pleurisy (principal); R06.02 Shortness of breath; F41.9 Anxiety disorder, unspecified
CPT/HCPCS: 71046; 99285

== ENCOUNTER 2021-04-13 15:11 | Emergency (ER) | payer OTHER ==
[2021-04-13 15:16] VITALS: BP 106/70; PULSE 89; RESP 20; TEMP 98.2
--- NOTE | 2021-04-13 15:32 | ED ---
General Adult HPI - General Chief complaint: Recheck/Abnormal Lab/Rx Stated complaint: Needs Dr note Time Seen by Provider: 04/13/21 15:19 Source: patient, RN notes reviewed Mode of arrival: ambulatory Limitations: no limitations - History of Present Illness Initial comments: 20-year-old male presents to the emergency room for a work note. 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 States he had an x-ray which was fine. Patient states he tried to return to work but they're requiring a note saying he can return. Patient states his symptoms of action much improved and they are almost gone. Patient does not want any further evaluation today, just wants a return to work note. He does not have a primary care to follow up with for this.Patient has no other complaints at this time including shortness of breath, abdominal pain, nausea or vomiting, headache, or visual changes. - Related Data Previous Rx's Medication Instructions Recorded Ibuprofen [Motrin] 600 mg PO Q8HR PRN #20 tab 04/07/21 Allergies Allergy/AdvReac Type Severity Reaction Status Date / Time cat dander Allergy Dyspnea Verified 04/13/21 15:16 Review of Systems ROS Statement: Those systems with pertinent positive or pertinent negative responses have been documented in the HPI. ROS Other: All systems not noted in ROS Statement are negative. Past Medical History Past Medical History: No Reported History Additional Past Medical History / Comment(s): Pleurisy History of Any Multi-Drug Resistant Organisms: None Reported Past Surgical History: No Surgical Hx Reported Past Psychological History: Anxiety Smoking Status: Never smoker Past Alcohol Use History: None Reported Past Drug Use History: None Reported General Exam Limitations: no limitations General appearance: alert, in no apparent distress Head exam: Present: atraumatic, normocephalic, normal inspection Eye exam: Present: normal appearance, PERRL, EOMI. Absent: scleral icterus, conjunctival injection, periorbital swelling ENT exam: Present: normal exam, mucous membranes moist Neck exam: Present: normal inspection, full ROM. Absent: tenderness, meningismus, lymphadenopathy Respiratory exam: Present: normal lung sounds bilaterally. Absent: respiratory distress, wheezes, rales, rhonchi, stridor Cardiovascular Exam: Present: regular rate, normal rhythm, normal heart sounds. Absent: systolic murmur, diastolic murmur, rubs, gallop, clicks GI/Abdominal exam: Present: soft, normal bowel sounds. Absent: distended, tenderness, guarding, rebound, rigid Neurological exam: Present: alert Course Vital Signs 04/13/21 15:13 Temperature 98.2 F Pulse Rate 89 Respiratory 20 Rate Blood Pressure 106/70 O2 Sat by Pulse 96 Oximetry Medical Decision Making - Medical Decision Making Vitals are stable. Patient is well-appearing. Patient stating his symptoms are significantly improved. He reports he tried to work however they are requiring a return to work note. 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 Patient refuses further workup, just wants a note. 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 He reports his mother is trying to get him into her primary care provider. Disposition Clinical Impression: Return to work evaluation Disposition: HOME SELF-CARE Condition: Good Instructions (If sedation given, give patient instructions): Return to Work Instructions (ED) Additional Instructions: If you have worsening symptoms return to the emergency room. Otherwise follow- up with primary care for further work restrictions and return to work parameters. Is patient prescribed a controlled substance at d/c from ED?: No Referrals: Maria Fernanda Cyr MD [REFERRING] - 1-2 days Time of Disposition: 15:29
== END 2021-04-13 15:42 | disposition home or self-care (01) ==
LOC: EC 15:11
DX: Z76.89 Persons encountering health services in other specified circumstances (principal)
CPT/HCPCS: 99281

== ENCOUNTER 2021-04-15 13:14 | Emergency (ER) | payer OTHER ==
[2021-04-15 13:39] VITALS: BP 108/70; PULSE 66; RESP 16; TEMP 97.9
--- NOTE | 2021-04-15 13:58 | XR ---
EXAMINATION TYPE: XR shoulder complete LT DATE OF EXAM: 04/15/2021 CLINICAL HISTORY: Pain after pushing injury. TECHNIQUE: Three views of the left shoulder are obtained. COMPARISON: None. FINDINGS: There is no acute fracture/dislocation evident in the left shoulder. The acromioclavicula r and glenohumeral joint spaces appear within normal limits. The visualized ribs are intact and unre markable. IMPRESSION: There is no acute fracture or dislocation in the left shoulder.
--- NOTE | 2021-04-15 14:11 | ED ---
Upper Extremity HPI - General Chief Complaint: Extremity Injury, Upper Stated Complaint: Lt Shoulder Pain/Revisit Time Seen by Provider: 04/15/21 14:00 Source: patient, RN notes reviewed Mode of arrival: ambulatory Limitations: physical limitation - History of Present Illness Initial Comments: Patient is a 20-year-old male that presents to the emergency room complaining of left shoulder pain. He notes that he was pushing heavy bins at work when his arm became sore. He notes that he can emergency room because he think he might a dislocated his shoulder. He notes that he does have full range of motion and full strength in his shoulders just sore. He denied any point tenderness or decreased sensation down his upper left extremity. He noted his pain was a 7 out of 10 but is yet to try any Tylenol Motrin or at home remedies before coming in. He noted that pushing heavy bins aggravates the pain. He denied any chest pain shortness breath headache nausea vomiting diarrhea constipation fever fatigue chills weakness numbness tingling decreased range of motion or strength in his upper left extremity. - Related Data Previous Rx's Medication Instructions Recorded Ibuprofen [Motrin] 600 mg PO Q8HR PRN #20 tab 04/07/21 Allergies Allergy/AdvReac Type Severity Reaction Status Date / Time cat dander Allergy Dyspnea Verified 04/15/21 13:39 Review of Systems ROS Statement: Those systems with pertinent positive or pertinent negative responses have been documented in the HPI. ROS Other: All systems not noted in ROS Statement are negative. Past Medical History Past Medical History: No Reported History Additional Past Medical History / Comment(s): Pleurisy History of Any Multi-Drug Resistant Organisms: None Reported Past Surgical History: No Surgical Hx Reported Past Psychological History: Anxiety Smoking Status: Never smoker Past Alcohol Use History: None Reported Past Drug Use History: None Reported General Exam Limitations: physical limitation General appearance: alert, in no apparent distress Head exam: Present: atraumatic, normocephalic, normal inspection Eye exam: Present: normal appearance, PERRL, EOMI. Absent: scleral icterus, conjunctival injection, periorbital swelling Neck exam: Present: normal inspection Respiratory exam: Present: normal lung sounds bilaterally. Absent: respiratory distress, wheezes, rales, rhonchi, stridor Cardiovascular Exam: Present: regular rate, normal rhythm, normal heart sounds. Absent: systolic murmur, diastolic murmur, rubs, gallop, clicks GI/Abdominal exam: Present: soft, normal bowel sounds. Absent: distended, tenderness, guarding, rebound, rigid Extremities exam: Present: normal inspection, full ROM, normal capillary refill. Absent: tenderness, pedal edema, joint swelling, calf tenderness Left Shoulder Exam: Present: normal inspection, full ROM. Absent: tenderness, swelling, abrasion, laceration, ecchymosis, deformity, crepitus, dislocation, erythema, tenderness over AC joint Vascular: Absent: vascular compromise Neurological exam: Present: alert, oriented X3, CN II-XII intact Psychiatric exam: Present: normal affect, normal mood Skin exam: Present: warm, dry, intact, normal color. Absent: rash Course Vital Signs 04/15/21 13:38 Temperature 97.9 F Pulse Rate 66 Respiratory 16 Rate Blood Pressure 108/70 O2 Sat by Pulse 97 Oximetry Medical Decision Making - Medical Decision Making 20-year-old male complaining of left shoulder pain after pushing her begins at work. X-ray of the left shoulder ordered. X-ray negative for any acute fractures or dislocations. Case discussed with Dr. Reynoso, patient discharge home with conservative management. - Radiology Data Radiology results: report reviewed, image reviewed X-ray of the left shoulder: No acute fracture dislocation Disposition Clinical Impression: Left shoulder strain Disposition: HOME SELF-CARE Condition: Stable Instructions (If sedation given, give patient instructions): Shoulder Sprain (ED), Shoulder Pain (ED) Additional Instructions: Please return to the Emergency Department if symptoms worsen or any other concerns. Use as tolerated, can take Tylenol Motrin as needed for pain control. Rest ice compress elevate as needed for symptom control. Follow-up primary care. Is patient prescribed a controlled substance at d/c from ED?: No Referrals: None,Stated [Primary Care Provider] - 1-2 days Time of Disposition: 14:09
== END 2021-04-15 14:17 | disposition home or self-care (01) ==
LOC: EC 13:14
DX: S46.912A Strain of unspecified muscle, fascia and tendon at shoulder and upper arm level, left arm, initial encounter (principal); F41.9 Anxiety disorder, unspecified; X50.0XXA Overexertion from strenuous movement or load, initial encounter; Y99.0 Civilian activity done for income or pay
CPT/HCPCS: 99283

== ENCOUNTER 2021-04-20 10:35 | Emergency (ER) | payer OTHER ==
[2021-04-20 11:06] VITALS: BP 96/66; PULSE 70; RESP 18; TEMP 97.6
--- NOTE | 2021-04-20 11:21 | XR ---
EXAMINATION TYPE: XR chest 2V DATE OF EXAM: 04/20/2021 COMPARISON: Chest x-ray April 07, 2021 HISTORY: Right-sided pain and shortness of breath. TECHNIQUE: Frontal and lateral views of the chest are obtained. FINDINGS: There is no suspicious new focal air space opacity, pleural effusion, or pneumothorax seen . The cardiac silhouette size remains within normal limits. The osseous structures are intact. IMPRESSION: No acute cardiopulmonary process. No significant change from prior.
--- NOTE | 2021-04-20 11:33 | ED ---
General Adult HPI - General Chief complaint: Chest Pain Stated complaint: Chest pain Time Seen by Provider: 04/20/21 11:08 Source: patient, RN notes reviewed Mode of arrival: ambulatory Limitations: no limitations - History of Present Illness Initial comments: Patient is a 20-year-old male that presents to emergency room complaining of left lower rib pain on deep inspiration. He notes that it started this morning. He notes the pain was approximate 7 out of 10 with no relief from anything. Patient frequents emergency department for different complaints. He was in no apparent distress or pain while sitting up in bed during the exam interview. He was sitting on his phone. Patient denied any palpitations shortness of breath headache nausea vomiting diarrhea constipation fever fatigue chills. - Related Data Previous Rx's Medication Instructions Recorded Ibuprofen [Motrin] 600 mg PO Q8HR PRN #20 tab 04/07/21 Allergies Allergy/AdvReac Type Severity Reaction Status Date / Time cat dander Allergy Dyspnea Verified 04/20/21 11:06 Review of Systems ROS Statement: Those systems with pertinent positive or pertinent negative responses have been documented in the HPI. ROS Other: All systems not noted in ROS Statement are negative. Past Medical History Past Medical History: No Reported History Additional Past Medical History / Comment(s): Pleurisy History of Any Multi-Drug Resistant Organisms: None Reported Past Surgical History: No Surgical Hx Reported Past Psychological History: Anxiety Smoking Status: Never smoker Past Alcohol Use History: None Reported Past Drug Use History: None Reported General Exam Limitations: no limitations General appearance: alert, in no apparent distress Head exam: Present: atraumatic, normocephalic, normal inspection Eye exam: Present: normal appearance, PERRL, EOMI. Absent: scleral icterus, conjunctival injection, periorbital swelling Neck exam: Present: normal inspection Respiratory exam: Present: normal lung sounds bilaterally. Absent: respiratory distress, wheezes, rales, rhonchi, stridor Cardiovascular Exam: Present: regular rate, normal rhythm, normal heart sounds. Absent: systolic murmur, diastolic murmur, rubs, gallop, clicks GI/Abdominal exam: Present: soft, normal bowel sounds. Absent: distended, tenderness, guarding, rebound, rigid Extremities exam: Present: normal inspection, full ROM, normal capillary refill. Absent: tenderness, pedal edema, joint swelling, calf tenderness Neurological exam: Present: alert, oriented X3, CN II-XII intact Psychiatric exam: Present: normal affect, normal mood Skin exam: Present: warm, dry, intact, normal color. Absent: rash Course Vital Signs 04/20/21 11:03 Temperature 97.6 F Pulse Rate 70 Respiratory 18 Rate Blood Pressure 96/66 O2 Sat by Pulse 95 Oximetry EKG Findings - EKG Comments: EKG Findings:: Ventricular rate 65 bpm, IN interval 172 ms, QRS duration 96 ms, QTC 405 ms, PRT axis -. Normal sinus rhythm, normal ECG. Medical Decision Making - Medical Decision Making 20-year-old male complaining of left-sided lower rib pain on deep inspiration. Chest x-ray, EKG, basic labs ordered. Patient informed nurse that he does not like his blood drawn and is refusing at this time. Chest x-ray negative. Case discussed with Dr. Washington, patient discharge home with follow-up primary care - EKG Data -: EKG Interpreted by [facility] EKG shows normal: sinus rhythm Rate: normal EKG Comments: Ventricular rate 65 bpm, IN interval 172 ms, QRS duration 96 ms, QTC 405 ms, PRT axis -. Normal sinus rhythm, normal ECG. - Radiology Data Radiology results: report reviewed, image reviewed Chest x-ray: No acute cardiopulmonary process. No significant change from prior. Disposition Clinical Impression: Costochondritis Disposition: HOME SELF-CARE Condition: Stable Instructions (If sedation given, give patient instructions): Costochondritis (ED) Additional Instructions: Please return to the Emergency Department if symptoms worsen or any other concerns. Please follow with primary care as he keep refusing workup at the ER we cannot keep supply work notes without valid testing. Work note given for today only. Follow-up with primary care in the next 1-2 days. Is patient prescribed a controlled substance at d/c from ED?: No Referrals: None,Stated [Primary Care Provider] - 1-2 days Time of Disposition: 11:32
== END 2021-04-20 11:38 | disposition home or self-care (01) ==
LOC: EC 10:35
DX: M94.0 Chondrocostal junction syndrome [Tietze] (principal)
CPT/HCPCS: 71046; 93005; 99285

== ENCOUNTER 2021-04-24 21:58 | Emergency (ER) | payer OTHER ==
[2021-04-24 22:02] VITALS: PULSE 78; RESP 16; TEMP 98.3
--- NOTE | 2021-04-24 22:46 | ED ---
Lower Extremity Injury HPI - General Chief Complaint: Extremity Injury, Lower Stated Complaint: R Knee Pain Time Seen by Provider: 04/24/21 22:27 Source: patient Mode of arrival: ambulatory Limitations: no limitations - History of Present Illness Initial Comments: This patient is a 20-year-old man who presents to have evaluation of his right knee which is causing pain. Patient states it started this afternoon/evening at work. He had been moving a heavy waste barrel around and then he twisted his right knee. He indicates pain along the medial and lateral margin of his patella. There was no impact to the knee. The patient states that the pain is mainly when he attempts to fully extend his leg. He is able to bear some weight on the leg. No previous injury or surgery. MD Complaint: knee injury -: hour(s) Injury: Knee: Left Type of Injury: unknown Place: work Severity: moderate Improves With: rest Worsens With: movement (Extension) Associated Symptoms: able to partially bear weight - Related Data Previous Rx's Medication Instructions Recorded Ibuprofen [Motrin] 600 mg PO Q8HR PRN #20 tab 04/07/21 Ibuprofen [Motrin] 600 mg PO Q8HR PRN #20 tab 04/24/21 Allergies Allergy/AdvReac Type Severity Reaction Status Date / Time cat dander Allergy Dyspnea Verified 04/24/21 22:02 Review of Systems ROS Statement: Those systems with pertinent positive or pertinent negative responses have been documented in the HPI. ROS Other: All systems not noted in ROS Statement are negative. Musculoskeletal: Reports: as per HPI, arthralgia. Denies: back pain, joint swelling, myalgia Skin: Denies: lesions Neurological: Denies: weakness, numbness, paresthesias Past Medical History Past Medical History: No Reported History Additional Past Medical History / Comment(s): Pleurisy History of Any Multi-Drug Resistant Organisms: None Reported Past Surgical History: No Surgical Hx Reported Past Psychological History: Anxiety Smoking Status: Never smoker Past Alcohol Use History: None Reported Past Drug Use History: None Reported General Exam Limitations: no limitations General appearance: alert, in no apparent distress Extremities exam: Present: normal inspection, tenderness (Lateral margin of the patella.), normal capillary refill. Absent: full ROM (The patient is only able to extend the right knee to 30. He does have full flexion.), pedal edema, joint swelling, calf tenderness Right Hip exam: Present: normal inspection, full ROM. Absent: tenderness, swelling Upper Leg exam: Present: normal inspection, full ROM. Absent: tenderness, swelling Knee exam: Present: normal inspection, tenderness, full knee extension. Absent: full ROM, swelling, abrasion, laceration, ecchymosis, deformity, crepitus, di slocation, erythema, effusion, pain w/ pronation/supination, posterior draw sign, pain/laxity with valgus, pain/laxity with varus Lower Leg exam: Present: normal inspection, full ROM. Absent: tenderness, swelling Ankle exam: Present: normal inspection, full ROM. Absent: tenderness, swelling Foot/Toe exam: Present: normal inspection, full ROM. Absent: tenderness, swelling Neurovascular tendon exam: Present: no vascular compromise Neurological exam: Present: alert. Absent: motor sensory deficit (Throughout the right leg) Course Vital Signs 04/24/21 21:59 Temperature 98.3 F Pulse Rate 78 Respiratory 16 Rate Blood Pressure 121/75 O2 Sat by Pulse 97 Oximetry Disposition Clinical Impression: Knee sprain Disposition: HOME SELF-CARE Condition: Good Instructions (If sedation given, give patient instructions): Knee Sprain (ED) Prescriptions: Ibuprofen [Motrin] 600 mg PO Q8HR PRN #20 tab PRN Reason: Pain Is patient prescribed a controlled substance at d/c from ED?: No Referrals: None,Stated [Primary Care Provider] - 1-2 days
--- NOTE | 2021-04-24 23:20 | XR ---
EXAMINATION TYPE: XR knee complete RT DATE OF EXAM: 04/24/2021 COMPARISON: NONE HISTORY: Knee pain TECHNIQUE: 3 views FINDINGS: There is no sign of fracture nor dislocation. Joint spaces are normal. There is no sign of joint effusion. IMPRESSION: Negative right knee exam
[2021-04-25 00:17] VITALS: BP 118/61
== END 2021-04-25 00:10 | disposition home or self-care (01) ==
LOC: EC 21:58
DX: S83.91XA Sprain of unspecified site of right knee, initial encounter (principal); F41.9 Anxiety disorder, unspecified; X50.1XXA Overexertion from prolonged static or awkward postures, initial encounter; Y99.0 Civilian activity done for income or pay
CPT/HCPCS: 99283

== ENCOUNTER 2021-05-06 14:48 | Emergency (ER) | payer OTHER ==
[2021-05-06 15:55] VITALS: BP 111/74; PULSE 59; RESP 20; TEMP 97.6
--- NOTE | 2021-05-06 16:59 | ED ---
General Adult HPI - General Chief complaint: Extremity Injury, Lower Stated complaint: I[facility]-Rt knee injury Time Seen by Provider: 05/06/21 16:26 Source: patient, RN notes reviewed Mode of arrival: ambulatory Limitations: no limitations - History of Present Illness Initial comments: 20-year-old male presents for right knee pain. Pain is been ongoing for the past couple weeks. He injured this at work. States that symptoms has significant improved but his work will not let him work until he has a work note saying he can come back. Patient states he can walk on it without difficulty. He can bend it. Denies fevers. Patient states he does not have a primary care doctor to follow up with so came here.Patient has no other complaints at this time including shortness of breath, chest pain, abdominal pain, nausea or vomiting, headache, or visual changes. - Related Data Previous Rx's Medication Instructions Recorded Ibuprofen [Motrin] 600 mg PO Q8HR PRN #20 tab 04/07/21 Ibuprofen [Motrin] 600 mg PO Q8HR PRN #20 tab 04/24/21 Allergies Allergy/AdvReac Type Severity Reaction Status Date / Time cat dander Allergy Dyspnea Verified 05/06/21 15:55 Review of Systems ROS Statement: Those systems with pertinent positive or pertinent negative responses have been documented in the HPI. ROS Other: All systems not noted in ROS Statement are negative. Past Medical History Past Medical History: No Reported History Additional Past Medical History / Comment(s): Pleurisy History of Any Multi-Drug Resistant Organisms: None Reported Past Surgical History: No Surgical Hx Reported Past Psychological History: Anxiety Smoking Status: Never smoker Past Alcohol Use History: None Reported Past Drug Use History: None Reported General Exam Limitations: no limitations General appearance: alert, in no apparent distress Head exam: Present: atraumatic, normocephalic, normal inspection Eye exam: Present: normal appearance, PERRL, EOMI. Absent: scleral icterus, conjunctival injection, periorbital swelling ENT exam: Present: normal exam, mucous membranes moist Neck exam: Present: normal inspection, full ROM. Absent: tenderness, meningismus, lymphadenopathy Respiratory exam: Present: normal lung sounds bilaterally. Absent: respiratory distress, wheezes, rales, rhonchi, stridor Cardiovascular Exam: Present: regular rate, normal rhythm, normal heart sounds. Absent: systolic murmur, diastolic murmur, rubs, gallop, clicks GI/Abdominal exam: Present: soft, normal bowel sounds. Absent: distended, tenderness, guarding, rebound, rigid Extremities exam: Present: full ROM (Range motion of the right lower extremity including the right knee,), normal capillary refill (Capillary refill less than 2 seconds, DP pulse 2+.), other (Patient ambulatory.). Absent: tenderness, pedal edema, joint swelling, calf tenderness Course Vital Signs 05/06/21 15:51 Temperature 97.6 F Pulse Rate 59 L Respiratory 20 Rate Blood Pressure 111/74 O2 Sat by Pulse 96 Oximetry Medical Decision Making - Medical Decision Making X-ray from 2 weeks ago was reviewed. No fractures. Patient just needs a work note to go back to work. He has full range of motion and is ambulatory on the knee. He will return here for any worsening symptoms. Disposition Clinical Impression: Return to work evaluation Disposition: HOME SELF-CARE Condition: Good Instructions (If sedation given, give patient instructions): Knee Sprain (ED) Additional Instructions: Please follow-up with primary care in 1-2 days. Return to the emergency room for any worsening symptoms. Is patient prescribed a controlled substance at d/c from ED?: No Referrals: Jose Fatima [STAFF PHYSICIAN] - 1-2 days Time of Disposition: 16:58
== END 2021-05-06 17:10 | disposition home or self-care (01) ==
LOC: EC 14:48
DX: Z02.79 Encounter for issue of other medical certificate (principal); Z79.1 Long term (current) use of non-steroidal anti-inflammatories (NSAID)

== ENCOUNTER → 2022-03-02 | Outpatient (CLI) | payer OTHER ==
--- NOTE | 2022-03-02 22:59 | XR ---
EXAMINATION TYPE: XR knee complete RT DATE OF EXAM: 03/02/2022 COMPARISON: X-ray dated 04/24/2021 INDICATION: Knee pain TECHNIQUE: 3 views of the right knee FINDINGS: Narrowing of the lateral tibiofemoral compartment, slightly progressed compared to the previous x-ray . No definite acute fracture line identified. No other significant bony degenerative changes of the k nee joint. Questionable small knee joint effusion. IMPRESSION: As above. Further MRI assessment can be considered.
== END | disposition home or self-care (01) ==
LOC: RADXRMAIN 11:08
PROVIDERS: ATTEND Internal Medicine
DX: M25.861 Other specified joint disorders, right knee (principal)

== ENCOUNTER 2022-07-10 22:04 | Emergency (ER) | payer OTHER ==
--- NOTE | 2022-07-11 02:13 | ED ---
Fever HPI - General Chief Complaint: Fever Stated Complaint: ABD Pain,Fever Time Seen by Provider: 07/11/22 01:45 Source: patient Mode of arrival: ambulatory Limitations: no limitations - History of Present Illness MD Complaint: fever Onset/Timin -: days(s) Context: sick contacts, multiple patients with similar symptoms Associated Symptoms: chills, myalgias, headache - Related Data Previous Rx's Medication Instructions Recorded Ibuprofen [Motrin] 600 mg PO Q8HR PRN #20 tab 04/07/21 Ibuprofen [Motrin] 600 mg PO Q8HR PRN #20 tab 04/24/21 Allergies Allergy/AdvReac Type Severity Reaction Status Date / Time cat dander Allergy Dyspnea Verified 07/10/22 23:02 Review of Systems ROS Statement: Those systems with pertinent positive or pertinent negative responses have been documented in the HPI. ROS Other: All systems not noted in ROS Statement are negative. Constitutional: Reports: fever, chills Respiratory: Reports: cough. Denies: dyspnea, wheezes Cardiovascular: Denies: chest pain Gastrointestinal: Denies: abdominal pain, nausea, vomiting Genitourinary: Denies: dysuria, hematuria Musculoskeletal: Reports: myalgia. Denies: back pain Skin: Denies: rash Neurological: Reports: headache. Denies: weakness Past Medical History Past Medical History: No Reported History Additional Past Medical History / Comment(s): Pleurisy History of Any Multi-Drug Resistant Organisms: None Reported Past Surgical History: No Surgical Hx Reported Past Psychological History: Anxiety Smoking Status: Never smoker Past Alcohol Use History: None Reported Past Drug Use History: None Reported General Exam Limitations: no limitations General appearance: alert, in no apparent distress Head exam: Present: atraumatic, normocephalic Eye exam: Present: normal appearance. Absent: scleral icterus, conjunctival injection Neck exam: Present: normal inspection, full ROM. Absent: meningismus Respiratory exam: Present: normal lung sounds bilaterally. Absent: respiratory distress, wheezes, rales, rhonchi, stridor Cardiovascular Exam: Present: regular rate, normal rhythm, normal heart sounds. Absent: systolic murmur, diastolic murmur, rubs, gallop GI/Abdominal exam: Present: soft. Absent: distended, tenderness, guarding, rebound, rigid, mass Extremities exam: Present: normal inspection, normal capillary refill. Absent: pedal edema, calf tenderness Back exam: Present: normal inspection. Absent: CVA tenderness (R), CVA te nderness (L) Neurological exam: Present: alert Skin exam: Present: warm, dry, intact, normal color. Absent: rash Course Vital Signs 07/10/22 22:58 Temperature 98.1 F Pulse Rate 76 Respiratory 20 Rate Blood Pressure 107/70 O2 Sat by Pulse 97 Oximetry Medical Decision Making - Lab Data Lab Results 07/10/22 07/10/22 Range/Units 23:08 23:08 Coronavirus (PCR) Detected A (Not Detectd) Influenza Type A RNA Not Detected (Not Detectd) Influenza Type B (PCR) Not Detected (Not Detectd) Disposition Clinical Impression: COVID-19 Disposition: HOME SELF-CARE Condition: Good Instructions (If sedation given, give patient instructions): COVID-19 (Coronavirus Disease 2019) (ED) Is patient prescribed a controlled substance at d/c from ED?: No Referrals: Karlee Daley MD [Primary Care Provider] - 1-2 days
[2022-07-11 04:18] VITALS: BP 118/67; PULSE 53; RESP 19; TEMP 98.3
== END 2022-07-11 04:00 | disposition home or self-care (01) ==
LOC: EC 22:04
DX: U07.1 COVID-19 (principal); Z91.048 Other nonmedicinal substance allergy status
CPT/HCPCS: 87502; 87635

== ENCOUNTER → 2022-09-01 | Outpatient (CLI) | payer OTHER ==
--- NOTE | 2022-09-01 17:10 | XR ---
EXAMINATION TYPE: XR knee complete RT DATE OF EXAM: 09/01/2022 COMPARISON: 03/02/2022 HISTORY: 22-year-old male M25.561, right knee pain TECHNIQUE: 3 views FINDINGS: Extensor mechanism is intact. No knee joint effusion. No acute fracture, subluxation, sulcation seen. IMPRESSION: No acute osseous abnormality seen.
== END | disposition home or self-care (01) ==
LOC: RADXRMAIN 15:40
PROVIDERS: ATTEND Internal Medicine
DX: M25.561 Pain in right knee (principal)

== ENCOUNTER → 2022-12-08 | Outpatient (CLI) | payer OTHER ==
--- NOTE | 2022-12-08 15:33 | XR ---
EXAMINATION TYPE: XR knee complete RT DATE OF EXAM: 12/08/2022 COMPARISON: None HISTORY: Injury, pain TECHNIQUE: 3 view right knee FINDINGS: Medial lateral compartment joint space are preserved. No acute fracture or dislocation is e vident. No joint effusion is evident. IMPRESSION: 1. No acute osseous abnormality right knee
== END | disposition home or self-care (01) ==
LOC: RADXRMAIN 14:22
PROVIDERS: ATTEND Internal Medicine
DX: S80.911A Unspecified superficial injury of right knee, initial encounter (principal); W19.XXXA Unspecified fall, initial encounter

== ENCOUNTER 2023-07-26 14:50 | Emergency (ER) | payer OTHER ==
[2023-07-26 14:56] VITALS: RESP 16
--- NOTE | 2023-07-26 15:51 | XR ---
EXAMINATION TYPE: XR knee complete RT DATE OF EXAM: 07/26/2023 CLINICAL HISTORY: pain TECHNIQUE: Three views of the right knee are obtained. COMPARISON: 12/08/2022 FINDINGS: There is no acute fracture/dislocation. The tri-compartment joint spaces appear within no rmal limits. There is evidence of patella shazia. This is a new finding relative to prior examination and I suspect patellar subluxation. Correlate clinically. The overlying soft tissue appears unremarka ble. IMPRESSION: There is evidence of patella shazia. This is a new finding relative to prior examination a nd I suspect patellar subluxation. Correlate clinically.
--- NOTE | 2023-07-26 16:09 | ED ---
Lower Extremity Injury HPI - General Chief Complaint: Extremity Injury, Lower Stated Complaint: fall/knee pain Time Seen by Provider: 07/26/23 14:58 Source: patient, RN notes reviewed Mode of arrival: ambulatory Limitations: no limitations - History of Present Illness Initial Comments: 22-year-old male presents emergency Department with chief complaint right knee pain. Patient states he caught his foot on the railroad spike in the ground. Patient states that his knee seemed to lock up and felt like it popped. Patient states she's unable to walk secondary to pain. He states he junk current physical therapy and has a follow-up appointment tomorrow with orthopedics for ongoing knee pain. - Related Data Previous Rx's Medication Instructions Recorded Ibuprofen [Motrin] 600 mg PO Q8HR PRN #20 tab 04/07/21 Ibuprofen [Motrin] 600 mg PO Q8HR PRN #20 tab 04/24/21 Allergies Allergy/AdvReac Type Severity Reaction Status Date / Time cat dander Allergy Dyspnea Verified 07/26/23 14:54 Review of Systems ROS Statement: Those systems with pertinent positive or pertinent negative responses have been documented in the HPI. ROS Other: All systems not noted in ROS Statement are negative. Past Medical History Past Medical History: No Reported History Additional Past Medical History / Comment(s): Pleurisy History of Any Multi-Drug Resistant Organisms: None Reported Past Surgical History: No Surgical Hx Reported Past Psychological History: Anxiety Smoking Status: Never smoker Past Alcohol Use History: None Reported Past Drug Use History: None Reported General Exam Limitations: no limitations General appearance: alert, in no apparent distress Head exam: Present: atraumatic, normocephalic, normal inspection Respiratory exam: Present: normal lung sounds bilaterally. Absent: respiratory distress, wheezes, rales, rhonchi, stridor Cardiovascular Exam: Present: regular rate, normal rhythm, normal heart sounds. Absent: systolic murmur, diastolic murmur, rubs, gallop, clicks Extremities exam: Present: other (Mild discomfort with range of motion, neurovascular intact there is a mobile patella with no evidence of subluxation) Course Vital Signs 07/26/23 07/26/23 14:54 16:32 Temperature 97.8 F 98.1 F Pulse Rate 76 70 Respiratory 16 16 Rate Blood Pressure 130/86 120/79 O2 Sat by Pulse 96 98 Oximetry Medical Decision Making - Medical Decision Making Was pt. sent in by a medical professional or institution ([facility]LYNN Flower, [facility]IR[facility] GRAZER, urgent care, hospital, or assisted...) When possible be specific @ -No Did you speak to anyone other than the patient for history (EMS, parent, family, police, friend...)? What history was obtained from this source @ -No Did you review nursing and triage notes (agree or disagree)? Why? @ -I reviewed and agree with nursing and triage notes Were old charts reviewed (outside hosp., previous admission, EMS record, old EKG, old radiological studies, urgent care reports/EKG's, assisted records)? Report findings @ -No old charts were reviewed Differential Diagnosis (chest pain, altered mental status, abdominal pain women, abdominal pain men, vaginal bleeding, weakness, fever, dyspnea, syncope, hea dache, dizziness, GI bleed, back pain, seizure, CVA, palpatations, mental health, musculoskeletal)? @ -Right knee sprain, patellar dislocation, patellar tendon rupture, knee dislo cation EKG interpreted by me (3pts min.). @ -None X-rays interpreted by me (1pt min.). @ -X-ray right knee shows evidence of patella shazia, questionable patellar subluxation CT interpreted by me (1pt min.). @ -None done U/S interpreted by me (1pt. min.). @ -None done What testing was considered but not performed or refused? (CT, X-rays, U/S, labs)? Why? @ -None What meds were considered but not given or refused? Why? @ -None Did you discuss the management of the patient with other professionals (professionals i.e. KAYLYNN Flower, DAIRY GRAZER, lab, RT, psych nurse, social work assistant, anesthesiologist attending, teacher, president and chief executive officer, rehabilitation case coordinator)? Give summary @ -No Was smoking cessation discussed for >3mins.? @ -No Was critical care preformed (if so, how long)? @ -No Were there social determinants of health that impacted care today? How? (Homelessness, low income, unemployed, alcoholism, drug addiction, transportation, low edu. Level, literacy, decrease access to med. care, penitentiary, rehab)? @ -No Was there de-escalation of care discussed even if they declined (Discuss DNR or withdrawal of care, Hospice)? DNR status @ -No What co-morbidities impacted this encounter? (DM, HTN, Smoking, COPD, CAD, Cancer, CVA, ARF, Chemo, Hep., AIDS, mental health diagnosis, sleep apnea, morbid obesity)? @ -None Was patient admitted / discharged? Hospital course, mention meds given and route, prescriptions, significant lab abnormalities, going to OR and other pertinent info. @ -Discharge patient was placed in knee immobilizer patient has a follow-up appointment with orthopedics associate tomorrow. Patient does not have clinical evidence of patellar subluxation has is a mobile patella Undiagnosed new problem with uncertain prognosis? @ -No Drug Therapy requiring intensive monitoring for toxicity (Heparin, Nitro, Insulin, Cardizem)? @ -No Were any procedures done? @ -No Diagnosis/symptom? @ -Right knee sprain Acute, or Chronic, or Acute on Chronic? @ -Acute Uncomplicated (without systemic symptoms) or Complicated (systemic symptoms)? @ -Uncomplicated Side effects of treatment? @ -No Exacerbation, Progression, or Severe Exacerbation? @ -No Poses a threat to life or bodily function? How? (Chest pain, [place], [place], pneumonia, PE, COPD, DKA, ARF, appy, cholecystitis, CVA, Diverticulitis, Homicidal, Suicidal, threat to staff... and all critical care pts) @ -No Disposition Clinical Impression: Right knee sprain, Patella shazia Disposition: HOME SELF-CARE Condition: Stable Instructions (If sedation given, give patient instructions): Knee Pain (ED) Additional Instructions: Please return to the Emergency Department if symptoms worsen or any other concerns. Is patient prescribed a controlled substance at d/c from ED?: No Referrals: Leanne Ortiz NPC [Family Provider] - 1-2 days Aleksey Wade PAC [PHYSICIAN [employer]] - 1-2 days Time of Disposition: 16:09
[2023-07-26 16:34] VITALS: BP 120/79; PULSE 70; TEMP 98.1
== END 2023-07-26 16:54 | disposition home or self-care (01) ==
LOC: EC 14:50
DX: S83.91XA Sprain of unspecified site of right knee, initial encounter (principal); Z91.09 Other allergy status, other than to drugs and biological substances; W19.XXXA Unspecified fall, initial encounter
CPT/HCPCS: 73562; 99283; L1830

== ENCOUNTER 2024-03-19 19:45 | Emergency (ER) | payer OTHER ==
--- NOTE | 2024-03-19 20:38 | ED ---
General Adult HPI - General Source: patient, RN notes reviewed Mode of arrival: ambulatory Limitations: no limitations <Sia Coello - Last Filed: 03/19/24 20:37> <Morgan Cornejo - Last Filed: 03/20/24 01:36> - General Chief complaint: Extremity Injury, Lower Stated complaint: R Leg Pain Injury Time Seen by Provider: 03/19/24 20:10 - History of Present Illness Initial comments: Quick note: 23-year-old male presents to the emergency department for evaluation of right knee injury. Patient states that he slipped on a dryer sheet causing his knee to twist. He states that since then his knee feels like it is giving out. He is able to ambulate on it. (Sia Coello) 23-year-old male presenting with chief complaint of right knee injury. Patient had a slip and fall earlier today during which his knee twisted and he states he felt a "pop". He feels like his knee is periodically giving out. He is able to ambulate on the leg. Pain is worst over the medial portion of the knee. No obvious swelling or deformity. No discoloration. (Morgan Cornejo) - Related Data Previous Rx's Medication Instructions Recorded Ibuprofen [Motrin] 600 mg PO Q8HR PRN #20 tab 04/07/21 Ibuprofen [Motrin] 600 mg PO Q8HR PRN #20 tab 04/24/21 Allergies Allergy/AdvReac Type Severity Reaction Status Date / Time cat dander Allergy Dyspnea Verified 03/19/24 20:17 Review of Systems ROS Other: All systems not noted in ROS Statement are negative. <Sia Coello - Last Filed: 03/19/24 20:37> ROS Other: All systems not noted in ROS Statement are negative. <Morgan Cornejo - Last Filed: 03/20/24 01:36> ROS Statement: Those systems with pertinent positive or pertinent negative responses have been documented in the HPI. Past Medical History Past Medical History: No Reported History Additional Past Medical History / Comment(s): Pleurisy History of Any Multi-Drug Resistant Organisms: None Reported Past Surgical History: No Surgical Hx Reported Past Psychological History: Anxiety Smoking Status: Never smoker Past Alcohol Use History: None Reported Past Drug Use History: None Reported <Sia Coello - Last Filed: 03/19/24 20:37> General Exam Limitations: no limitations <Sia Coello - Last Filed: 03/19/24 20:37> Limitations: no limitations General appearance: alert, in no apparent distress Head exam: Present: atraumatic, normocephalic Eye exam: Present: normal appearance, EOMI Neck exam: Present: normal inspection. Absent: meningismus Respiratory exam: Absent: respiratory distress Cardiovascular Exam: Present: regular rate Right Knee exam: Present: normal inspection, full ROM, tenderness. Absent: swelling, ecchymosis, deformity Neurovascular tendon exam: Present: no vascular compromise Neurological exam: Present: alert, oriented X3 Psychiatric exam: Present: normal affect, normal mood Skin exam: Present: warm, dry <Morgan Cornejo - Last Filed: 03/20/24 01:36> - General Exam Comments Initial Comments: Visual Physical Exam Vital signs reviewed General: Well-appearing, nontoxic, no acute distress. Head: Normocephalic, atraumatic Eyes: PERRLA, EOMI ENT: Airway patent Chest: Nonlabored breathing Skin: No visual rash, normal skin tone Neuro: Alert and oriented 3 Musculoskeletal: No gross abnormalities (Sia Coello) Course Vital Signs 03/19/24 20:15 Temperature 97.6 F Pulse Rate 77 Respiratory 18 Rate Blood Pressure 116/71 O2 Sat by Pulse 98 Oximetry Medical Decision Making <Sia Coello - Last Filed: 03/19/24 20:37> <Morgan Cornejo - Last Filed: 03/20/24 01:36> - Medical Decision Making Quick note preformed and electronically signed by Sia Coello PA-C (Sia Coello) Was pt. sent in by a medical professional or institution ([facility] Flower, QUANTITATIVE STRATEGY ANALYST, urgent care, hospital, or jail...) When possible be specific @ -No Did you speak to anyone other than the patient for history (EMS, parent, family, police, friend...)? What history was obtained from this source @ -No Did you review nursing and triage notes (agree or disagree)? Why? @ -I reviewed and agree with nursing and triage notes Were old charts reviewed (outside hosp., previous admission, EMS record, old EKG, old radiological studies, urgent care reports/EKG's, jail records)? Report findings @ -No old charts were reviewed Differential Diagnosis (chest pain, altered mental status, abdominal pain women, abdominal pain men, vaginal bleeding, weakness, fever, dyspnea, syncope, headache, dizziness, GI bleed, back pain, seizure, CVA, palpatations, mental health, musculoskeletal)? @ -Differential Musculoskeletal Muscular strain, contusion, ligament sprain, fracture, arthritis, septic arthritis, bursitis, cellulitis, muscle spasm, nerve compression, DVT, arterial occlusion, herpes zoster, electrolyte abnormality, tumor.... This is not meant to be in all inclusive list EKG interpreted by me (3pts min.). @ -As above X-rays interpreted by me (1pt min.). @ -X-ray shows no evidence of acute trauma. No significant abnormality. CT interpreted by me (1pt min.). @ -None done U/S interpreted by me (1pt. min.). @ -None done What testing was considered but not performed or refused? (CT, X-rays, U/S, labs)? Why? @ -None What meds were considered but not given or refused? Why? @ -None Did you discuss the management of the patient with other professionals (professionals i.e. , PA, QUANTITATIVE STRATEGY ANALYST, lab, RT, psych nurse, social work associate, visual designer, teacher, promotions officer, casework supervisor)? Give summary @ -No Was smoking cessation discussed for >3mins.? @ -No Was critical care preformed (if so, how long)? @ -No Were there social determinants of health that impacted care today? How? (Homelessness, low income, unemployed, alcoholism, drug addiction, transportation, low edu. Level, literacy, decrease access to med. care, [facility], rehab)? @ -No Was there de-escalation of care discussed even if they declined (Discuss DNR or withdrawal of care, Hospice)? DNR status @ -No What co-morbidities impacted this encounter? (DM, HTN, Smoking, COPD, CAD, Cancer, CVA, ARF, Chemo, Hep., AIDS, mental health diagnosis, sleep apnea, morbid obesity)? @ -None Was patient admitted / discharged? Hospital course, mention meds given and route, prescriptions, significant lab abnormalities, going to OR and other pertinent info. @ -23-year-old male presenting with chief complaint of right knee injury today. X-rays negative for fracture or dislocation. Patient is provided with knee immobilizer and crutches. Discharged home. Instructed to follow-up with orthopedics. Follow-up with PCP. Report back to ER with any new or worsening symptoms. Discussed return parameters and answered all questions. Patient conveyed verbal understanding and agreed to the plan. I discussed this case in detail with my attending Dr. Reynoso Undiagnosed new problem with uncertain prognosis? @ -No Drug Therapy requiring intensive monitoring for toxicity (Heparin, Nitro, Insulin, Cardizem)? @ -No Were any procedures done? @ -No Diagnosis/symptom? @ -Knee sprain Acute, or Chronic, or Acute on Chronic? @ -Acute Uncomplicated (without systemic symptoms) or Complicated (systemic symptoms)? @ -Uncomplicated Side effects of treatment? @ -No Exacerbation, Progression, or Severe Exacerbation? @ -No Poses a threat to life or bodily function? How? (Chest pain, [place], [place], pneumonia, PE, COPD, DKA, ARF, appy, cholecystitis, CVA, Diverticulitis, Homicidal, Suicidal, threat to staff... and all critical care pts) @ -No (Morgan Cornejo) Disposition <Sia Coello - Last Filed: 03/19/24 20:37> Is patient prescribed a controlled substance at d/c from ED?: No Time of Disposition: 21:02 <Morgan Cornejo - Last Filed: 03/20/24 01:36> Clinical Impression: Knee sprain Disposition: HOME SELF-CARE Condition: Good Instructions (If sedation given, give patient instructions): Knee Sprain (ED) Additional Instructions: Follow-up with orthopedics. Report back to ER with any new or worsening symptoms. Take Motrin and Tylenol as needed for pain control. Rest, ice, elevate the knee. Utilize immobilizer and crutches. Referrals: Indra Blanton MD [Primary Care Provider] - 1-2 days Frandy Metz DO [Doctor of Osteopathic Medicine] - 1-2 days
--- NOTE | 2024-03-19 20:38 | XR ---
Right knee. HISTORY: Pain following fall. COMPARISON: None. TECHNIQUE: 3 views of the right knee were obtained. FINDINGS: There is no fracture, dislocation, intraosseous, intra-articular or soft tissue abnormality. There is no joint effusion. IMPRESSION: No evidence of acute trauma. No significant abnormality.
[2024-03-19 20:52] VITALS: BP 116/71; PULSE 77; RESP 18; TEMP 97.6
== END 2024-03-19 21:37 | disposition home or self-care (01) ==
LOC: EC 19:45
DX: S83.91XA Sprain of unspecified site of right knee, initial encounter (principal); Z91.048 Other nonmedicinal substance allergy status; W01.0XXA Fall on same level from slipping, tripping and stumbling without subsequent striking against object, initial encounter
CPT/HCPCS: 73562; 99283; L1830

== ENCOUNTER 2024-04-02 17:37 | Emergency (ER) | payer OTHER ==
--- NOTE | 2024-04-02 17:49 | ED ---
Lower Extremity Injury HPI - General Source: patient, RN notes reviewed Mode of arrival: ambulatory Limitations: no limitations <Yojana Grewal - Last Filed: 04/02/24 17:48> <Sulma Peñaloza - Last Filed: 04/02/24 19:54> - General Stated Complaint: Weakness, pain in right knee Time Seen by Provider: 04/02/24 17:48 - History of Present Illness Initial Comments: Quick note: 23-year-old male presented to the ER with chief complaint of right knee pain. Patient reports he injured his knee and has followed up with orthopedics. He is scheduled for an EMG. He states recently his knee has been painful and giving out on him. (Yojana Grewal) This is a 23-year-old male with no significant past medical history who presents the emergency department chief complaint of right knee pain. Patient states that he has been experiencing right knee pain over the past 2 years. He denies any injury or previous surgeries to the knee. States that he has seen an patent law specialist due to this pain where an MRI was ordered with no acute findings. Reports that he has a scheduled nerve and muscle testing with orthopedics outpatient in April for further evaluation. States that he has not taken any medication at home for symptomatic relief. (Sulma Peñaloza) - Related Data Previous Rx's Medication Instructions Recorded Ibuprofen [Motrin] 600 mg PO Q8HR PRN #20 tab 04/07/21 Ibuprofen [Motrin] 600 mg PO Q8HR PRN #20 tab 04/24/21 Allergies Allergy/AdvReac Type Severity Reaction Status Date / Time cat dander Allergy Dyspnea Verified 04/02/24 17:56 Review of Systems ROS Other: All systems not noted in ROS Statement are negative. <Yojana Grewal - Last Filed: 04/02/24 17:48> ROS Other: All systems not noted in ROS Statement are negative. <Sulma Peñaloza - Last Filed: 04/02/24 19:54> ROS Statement: Those systems with pertinent positive or pertinent negative responses have been documented in the HPI. Past Medical History Past Medical History: No Reported History Additional Past Medical History / Comment(s): Pleurisy History of Any Multi-Drug Resistant Organisms: None Reported Past Surgical History: No Surgical Hx Reported Past Psychological History: Anxiety Smoking Status: Never smoker Past Alcohol Use History: None Reported Past Drug Use History: None Reported <Yojana Grewal - Last Filed: 04/02/24 17:48> General Exam <Yojana Grewal - Last Filed: 04/02/24 17:48> General appearance: alert, in no apparent distress Head exam: Present: atraumatic, normocephalic, normal inspection Eye exam: Present: normal appearance, PERRL, EOMI. Absent: scleral icterus, conjunctival injection, periorbital swelling ENT exam: Present: normal exam, mucous membranes moist Neck exam: Present: normal inspection. Absent: tenderness, meningismus, lymphadenopathy Respiratory exam: Present: normal lung sounds bilaterally. Absent: respiratory distress, wheezes, rales, rhonchi, stridor Cardiovascular Exam: Present: regular rate, normal rhythm, normal heart sounds. Absent: systolic murmur, diastolic murmur, rubs, gallop, clicks GI/Abdominal exam: Present: soft, normal bowel sounds. Absent: distended, tenderness, guarding, rebound, rigid Extremities exam: Present: normal inspection, full ROM, normal capillary refill. Absent: tenderness, pedal edema, joint swelling, calf tenderness Right Knee exam: Present: normal inspection, full ROM, tenderness. Absent: swelling, ecchymosis, deformity, crepitus, dislocation, erythema, effusion Back exam: Present: normal inspection Neurological exam: Present: alert, oriented X3, CN II-XII intact Psychiatric exam: Present: normal affect, normal mood Skin exam: Present: warm, dry, intact, normal color. Absent: rash <Sulma Peñaloza - Last Filed: 04/02/24 19:54> - General Exam Comments Initial Comments: Visual Physical Exam Vital signs reviewed General: Well-appearing, nontoxic, no acute distress. Head: Normocephalic, atraumatic Eyes: PERRLA, EOMI ENT: Airway patent Chest: Nonlabored breathing Skin: No visual rash, normal skin tone Neuro: Alert and oriented 3 Musculoskeletal: No gross abnormalities (Yojana Grewal) Course Vital Signs 04/02/24 17:53 Temperature 98.1 F Pulse Rate 80 Respiratory 18 Rate Blood Pressure 106/67 O2 Sat by Pulse 96 Oximetry Medical Decision Making <Yojana Grewal - Last Filed: 04/02/24 17:48> <Sulma Peñaloza - Last Filed: 04/02/24 19:54> - Medical Decision Making I performed the quick note portion of this chart. Electronically signed by Yojana Grewal PA-C (Yojana Grewal) Was pt. sent in by a medical professional or institution ([facility]AYLYNN Flower, ADMINISTRATIVE VOLUNTEER, urgent care, hospital, or [facility]...) When possible be specific @ -No Did you speak to anyone other than the patient for history (EMS, parent, family, police, friend...)? What history was obtained from this source @ -No Did you review nursing and triage notes (agree or disagree)? Why? @ -I reviewed and agree with nursing and triage notes Were old charts reviewed (outside hosp., previous admission, EMS record, old EKG, old radiological studies, urgent care reports/EKG's, [facility] records)? Report findings @ -No old charts were reviewed Differential Diagnosis (chest pain, altered mental status, abdominal pain women, abdominal pain men, vaginal bleeding, weakness, fever, dyspnea, syncope, headache, dizziness, GI bleed, back pain, seizure, CVA, palpatations, mental health, musculoskeletal)? @ -Differential Musculoskeletal Muscular strain, contusion, ligament sprain, fracture, arthritis, septic arthritis, bursitis, cellulitis, muscle spasm, nerve compression, DVT, arterial occlusion, herpes zoster, electrolyte abnormality, tumor.... This is not meant to be in all inclusive list EKG interpreted by me (3pts min.). @ -None X-rays interpreted by me (1pt min.). @ -xray of the right knee with no acute bony abnormality CT interpreted by me (1pt min.). @ -None done U/S interpreted by me (1pt. min.). @ -None done What testing was considered but not performed or refused? (CT, X-rays, U/S, labs)? Why? @ -None What meds were considered but not given or refused? Why? @ -None Did you discuss the management of the patient with other professionals (professionals i.e. KAYLYNN Flower, ADMINISTRATIVE VOLUNTEER, lab, RT, psych nurse, social media intern, mail inserter, teacher, evp and chief operating officer, case coordinator)? Give summary @ -No Was smoking cessation discussed for >3mins.? @ -No Was critical care preformed (if so, how long)? @ -No Were there social determinants of health that impacted care today? How? (Homelessness, low income, unemployed, alcoholism, drug addiction, transportation, low edu. Level, literacy, decrease access to med. care, intermediate, rehab)? @ -No Was there de-escalation of care discussed even if they declined (Discuss DNR or withdrawal of care, Hospice)? DNR status @ -No What co-morbidities impacted this encounter? (DM, HTN, Smoking, COPD, CAD, Cancer, CVA, ARF, Chemo, Hep., AIDS, mental health diagnosis, sleep apnea, morbid obesity)? @ -None Was patient admitted / discharged? Hospital course, mention meds given and route, prescriptions, significant lab abnormalities, going to OR and other pertinent info. @ -23-year-old male plaint of right knee pain. On examination there are no signs of effusion, edema or erythema of the knee. Patient has full range of motion. Pain is elicited with palpation over the medial and lateral knee. Pain is also exacerbated with varus and valgus stress. Discussion with patient that x-ray showed no acute findings. Patient states that he has a follow-up scheduled with orthopedics in the summer for further evaluation. Recommend that patient uses Biofreeze at home for symptomatic relief. All questions answered at bedside. Patient stable for discharge. Recommend follow-up with primary care physician in the next 3 days for further evaluation. Case discussed with Dr. Romero Undiagnosed new problem with uncertain prognosis? @ -No Drug Therapy requiring intensive monitoring for toxicity (Heparin, Nitro, Insulin, Cardizem)? @ -No Were any procedures done? @ -No Diagnosis/symptom? @ -right knee pain Acute, or Chronic, or Acute on Chronic? @ -Acute Uncomplicated (without systemic symptoms) or Complicated (systemic symptoms)? @ -uncomplicated Side effects of treatment? @ -No Exacerbation, Progression, or Severe Exacerbation? @ -No Poses a threat to life or bodily function? How? (Chest pain, [place], [place], pneumonia, PE, COPD, DKA, ARF, appy, cholecystitis, CVA, Diverticulitis, Homicidal, Suicidal, threat to staff... and all critical care pts) @ -No (Jh,Sulma) Disposition <Yojana Grewal - Last Filed: 04/02/24 17:48> Is patient prescribed a controlled substance at d/c from ED?: No Time of Disposition: 19:23 <Sulma Peñaloza - Last Filed: 04/02/24 19:54> Clinical Impression: Right knee pain Narrative: Please return to the Emergency Department if symptoms worsen or any other concerns. Follow-up as scheduled with orthopedics for further evaluation (Sulma Peñaloza) Disposition: HOME SELF-CARE Condition: Good Instructions (If sedation given, give patient instructions): Knee Pain (ED) Referrals: Indra Blanton MD [Primary Care Provider] - 1-2 days
--- NOTE | 2024-04-02 18:32 | XR ---
EXAMINATION TYPE: XR knee complete RT DATE OF EXAM: 04/02/2024 COMPARISON: 03/19/2024 HISTORY: Pain TECHNIQUE: 3 view right knee FINDINGS: No acute fracture or dislocation is evident. No joint effusion is evident. Joint spaces are preserved. Follow up exams can be performed 7-10 days from acute trauma for continued pain. IMPRESSION: 1. No acute osseous abnormality three-view right knee
[2024-04-02 18:41] VITALS: RESP 18
[2024-04-02 20:16] VITALS: BP 108/68; PULSE 72; TEMP 97.7
== END 2024-04-02 20:04 | disposition home or self-care (01) ==
LOC: EC 17:37
DX: M25.561 Pain in right knee (principal); Z88.8 Allergy status to other drugs, medicaments and biological substances
CPT/HCPCS: 99283